=== PATIENT | female | born 1945 | race Caucasian/White ===

== ENCOUNTER 2018-06-20 23:22 | Emergency (ER) | payer OTHER ==
--- OUTSIDE RECORDS SUMMARY | 2018-06-20 23:24 | XMS REPORT | Continuity of Care Document ---
:1945 Author Organization Interface Problems Problem Status Onset Date Classification Date Comments Source Reported Medications Medication Details Route Status Patient Ordering Order Source Instructions Provider Date Allergies, Adverse Reactions, Alerts Substance Category Reaction Severity Reaction Status Date Comments Source type Reported Immunizations Immunization Date Given Site Status Last Updated Comments Source Results Order Results Value Reference Date Interpretation Comments Source Name Range Vital Signs Vital Sign Value Date Comments Source Encounters Location Location Encounter Encounter Reason Attending ADM DC Status Source Details Type Number For Provider Date Date Visit Outpatient [id number] [facility] 12/03 [facility] Outpatient [id number] ALEX 06/10 [facility] Outpatient [id number] ALEX 09/02 [facility] Procedures Procedure Code Date Perfomer Comments Source
[2018-06-20] MEDS ORDERED: DERMABOND SKIN ADHESIVE TOP ONE (23:56)
[2018-06-21] MEDS ORDERED: LIDOCAINE 1% MPF 2 ML AMPULE ONE (00:07)
[2018-06-21] MEDS ORDERED: TETANUS & DIPHTHERIA TOX,ADULT 0.5 ML VIAL ONE (00:32)
--- NOTE | 2018-06-21 04:15 | EDPHYS ---
Physician Documentation [facility] Name: Cony Bertrand Age: 73 yrs Sex: Female : 1945 Arrival Date: 06/20/2018 Time: 23:31 Bed 14 Private MD: Mele Beach C ED Physician Girish Coker HPI: 06/21 00:37 This 73 yrs old Female presents to ER via Ambulatory with complaints of Fall jr8 Injury, Laceration To Lip. 00:37 Onset: The symptoms/episode began/occurred acutely, today. Associated injuries: The jr8 patient sustained mouth. Severity of symptoms: At their worst the symptoms were mild, in the emergency department the symptoms are unchanged. The patient has not experienced similar symptoms in the past. The patient has not recently seen a physician. Fell coming out of catholic. Hit chin on ground. Denies LOC. No head or neck pain. Currently not on any blood thinners . Historical: - Allergies: 06/20 23:50 none; ak1 - Home Meds: 23:50 verapamil 240 mg Oral TbER 1 tab twice a day [Active]; ak1 - PMHx: 23:50 Hypertension; ak1 - PSHx: 23:50 Tonsillectomy; ak1 - Immunization history:: Adult Immunizations unknown, Last tetanus immunization: unknown. - Social history:: Smoking status: Patient/guardian denies using tobacco. - Ebola Screening: : No symptoms or risks identified at this time. ROS: 06/21 00:37 Eyes: Negative for injury, pain, redness, and discharge, Neck: Negative for injury, jr8 pain, and swelling, Cardiovascular: Negative for chest pain, palpitations, and edema, Respiratory: Negative for shortness of breath, cough, wheezing, and pleuritic chest pain, Abdomen/GI: Negative for abdominal pain, nausea, vomiting, diarrhea, and constipation, Back: Negative for injury and pain, MS/Extremity: Negative for injury and deformity, Skin: Negative for injury, rash, and discoloration, Neuro: Negative for headache, weakness, numbness, tingling, and seizure. ENT: Positive for laceration lip. Exam: 00:37 Eyes: Pupils equal round and reactive to light, extra-ocular motions intact. Lids and jr8 lashes normal. Conjunctiva and sclera are non-icteric and not injected. Cornea within normal limits. Periorbital areas with no swelling, redness, or edema. Neck: Trachea midline, no thyromegaly or masses palpated, and no cervical lymphadenopathy. Supple, full range of motion without nuchal rigidity, or vertebral point tenderness. No Meningismus. Cardiovascular: Regular rate and rhythm with a normal S1 and S2. No gallops, murmurs, or rubs. Normal PMI, no JVD. No pulse deficits. Respiratory: Lungs have equal breath sounds bilaterally, clear to auscultation and percussion. No rales, rhonchi or wheezes noted. No increased work of breathing, no retractions or nasal flaring. Abdomen/GI: Soft, non-tender, with normal bowel sounds. No distension or tympany. No guarding or rebound. No evidence of tenderness throughout. Back: No spinal tenderness. No costovertebral tenderness. Full range of motion. Skin: Warm, dry with normal turgor. Normal color with no rashes, no lesions, and no evidence of cellulitis. MS/ Extremity: Pulses equal, no cyanosis. Neurovascular intact. Full, normal range of motion. Neuro: Awake and alert, GCS 15, oriented to person, place, time, and situation. Cranial nerves II-XII grossly intact. Motor strength 5/5 in all extremities. Sensory grossly intact. Cerebellar exam normal. Normal gait. 00:37 ENT: Exam is negative for earache, ear discharge, TM abnormalities, nasal discharge, pharyngitis, Mouth: Lips: small laceration to center aspect lower lip. approximately 2 cm in length and about 2 mm deep. Another small jagged laceration that is superficial to outer lower lip distal to the vermilion border , Oral mucosa: pink and intact, moist, Gums: pink, Tongue: is moist, Dental exam: no acute changes. Vital Signs: 06/20 23:46 BP 184 / 106; Pulse 79; Resp 18; Temp 99.1(O); Pulse Ox 97% on R/A; Weight 74.84 kg ak1 (R); Height 5 ft. 2 in. (157.48 cm) (R); Pain 06/09; 06/21 00:36 BP 169 / 85; Pulse 81; Resp 18; Pulse Ox 99% on R/A; Pain 0/10; aa1 06/20 23:46 Body Mass Index 30.18 (74.84 kg, 157.48 cm) ak1 Laceration: 00:12 Wound Repair of 2.0cm ( 0.8in ) mucosal laceration to mouth. Linear shaped.. Minimal jr8 bleeding noted.. Distal neuro/vascular/tendon intact. Anesthesia: Local anesthetic administered with 2 mls of 1% lidocaine. Wound prep: Moderate cleansing with hibiclenz, Wound irrigation with saline, Wound explored extensively. Skin closed with 2 5-0 fast absorbing chromic using simple sutures and sterile technique. Patient tolerated well. 00:12 Wound Repair of 1.5cm ( 0.6in ) partial thickness laceration to outer lower lip. jr8 Irregularly shaped.. Distal neuro/vascular/tendon intact. Wound prep: Moderate cleansing with hibiclenz, Wound irrigation with saline, Wound explored extensively. Skin closed with thin layer Adhesive skin closure using Dermabond. Patient tolerated well. MDM: 06/20 23:38 Patient medically screened. jr8 06/21 00:12 Data reviewed: vital signs, nurses notes, and as a result, I will discharge patient. jr8 Data interpreted: Pulse oximetry: on room air is 97 %. Interpretation: normal. Counseling: I had a detailed discussion with the patient and/or guardian regarding: the historical points, exam findings, and any diagnostic results supporting the discharge/admit diagnosis, the need for outpatient follow up, a family practitioner, to return to the emergency department if symptoms worsen or persist or if there are any questions or concerns that arise at home. Administered Medications: 00:05 Drug: Lidocaine (1 %) 2 mg Route: Infiltration; aa1 00:30 Drug: Tetanus-Diphtheria Toxoid Adult 0.5 ml {Testing Director: [employer]. Exp: aa1 07/14/2020. Lot #: [id number]. } Route: IM; Site: left deltoid; 00:35 Follow up: Response: Medication administered at discharge. aa1 Disposition: 04:01 Co-signature as Attending Physician, Girish Coker MD I agree with the assessment and tw4 plan of care. Disposition: 06/21/18 00:15 Discharged to Home. Impression: Laceration of lip and oral cavity without foreign body. - Condition is Stable. - Discharge Instructions: Tissue Adhesive Wound Care, Stitches, Mcdonald, or Adhesive Wound Closure. - Medication Reconciliation Form, Thank You Letter, Antibiotic Education, Prescription Opioid Use form. - Follow up: Mele Beach MD; When: As needed; Reason: Wound Recheck, Recheck today's complaints, Continuance of care, Re-evaluation by your physician. - Problem is new. - Symptoms have improved. Signatures: Nasreen Leung RN RN aa1 Wesley Walls PA PA jr8 Maddy Hunt RN RN ak1 Girish Coker MD MD tw4 Corrections: (The following items were deleted from the chart) 00:37 00:15 06/21/2018 00:15 Discharged to Home. Impression: Laceration of lip and oral aa1 cavity without foreign body. Condition is Stable. Forms are Medication Reconciliation Form, Thank You Letter, Antibiotic Education, Prescription Opioid Use. Follow up: Mele Beach; When: As needed; Reason: Wound Recheck, Recheck today's complaints, Continuance of care, Re-evaluation by your physician. Problem is new. Symptoms have improved. jr8
--- NOTE | 2018-06-21 04:15 | ER ---
Nurse's Notes [facility] Name: Cony Bertrand Age: 73 yrs Sex: Female : 1945 Arrival Date: 06/20/2018 Time: 23:31 Bed 14 Private MD: Mele Beach C Diagnosis: Laceration of lip and oral cavity without foreign body Presentation: 06/20 23:47 Presenting complaint: Patient states: tripped and fell from standing at 1830. pt denies ak1 LOC. pt c/o bleeding to laceration on lip. Transition of care: patient was not received from another setting of care. Onset of symptoms was June 20, 2018. Risk Assessment: Do you want to hurt yourself or someone else? Patient reports no desire to harm self or others. Initial Sepsis Screen: Does the patient meet any 2 criteria? No. Patient's initial sepsis screen is negative. Does the patient have a suspected source of infection? No. Patient's initial sepsis screen is negative. Care prior to arrival: None. 23:47 Method Of Arrival: Ambulatory ak1 23:47 Acuity: VIOLETTE 4 ak1 Triage Assessment: 23:50 General: Appears in no apparent distress. Behavior is calm, cooperative. Pain: Denies ak1 pain. EENT: laceration to lip\E\. Neuro: Level of Consciousness is awake, alert, obeys commands, Oriented to person, place, time, situation, Caving Guide are equal bilaterally Moves all extremities. Gait is steady, Speech is normal. Cardiovascular: No deficits noted. Historical: - Allergies: 23:50 none; ak1 - Home Meds: 23:50 verapamil 240 mg Oral TbER 1 tab twice a day [Active]; ak1 - PMHx: 23:50 Hypertension; ak1 - PSHx: 23:50 Tonsillectomy; ak1 - Immunization history:: Adult Immunizations unknown, Last tetanus immunization: unknown. - Social history:: Smoking status: Patient/guardian denies using tobacco. - Ebola Screening: : No symptoms or risks identified at this time. Screenin:50 Abuse screen: Denies threats or abuse. Denies injuries from another. Nutritional aa1 screening: No deficits noted. Tuberculosis screening: No symptoms or risk factors identified. Fall Risk Fall in past 12 months (25 points). Assessment: 23:50 General: Appears in no apparent distress. comfortable, Behavior is calm, cooperative, aa1 appropriate for age. Pain: Complains of pain in mouth. Neuro: Level of Consciousness is awake, alert, obeys commands, Oriented to person, place, time, situation, Speech is normal. Respiratory: Airway is patent Respiratory effort is even, unlabored, Respiratory pattern is regular, symmetrical. GI: No signs and/or symptoms were reported involving the gastrointestinal system. : No signs and/or symptoms were reported regarding the genitourinary system. EENT: laceration noted to lip. Derm: Skin is intact, is healthy with good turgor, Skin is pink, warm \T\ dry. Musculoskeletal: Circulation, motion, and sensation intact. Capillary refill < 3 seconds. Injury Description: Laceration sustained to mouth is 0.5 to 2.5 cm long, not bleeding, was sustained 4-6 hours ago. 06/21 00:02 Reassessment: Patient appears in no apparent distress at this time. Patient is alert, aa1 oriented x 3, equal unlabored respirations, skin warm/dry/pink. PA at bedside for lac repair to lip. 00:36 Reassessment: Patient appears in no apparent distress at this time. Patient is alert, aa1 oriented x 3, equal unlabored respirations, skin warm/dry/pink. Discussed d/c \T\ f/u instructions with pt \T\ spouse; denies questions or concerns at this time. Vital Signs: 06/20 23:46 BP 184 / 106; Pulse 79; Resp 18; Temp 99.1(O); Pulse Ox 97% on R/A; Weight 74.84 kg ak1 (R); Height 5 ft. 2 in. (157.48 cm) (R); Pain 1/10; 06/21 00:36 BP 169 / 85; Pulse 81; Resp 18; Pulse Ox 99% on R/A; Pain 0/10; aa1 06/20 23:46 Body Mass Index 30.18 (74.84 kg, 157.48 cm) ak1 ED Course: 06/20 23:31 Patient arrived in ED. es 23:31 Mele Beach MD is Private Physician. es 23:38 [facility]. jr8 23:38 Girish Coker MD is Attending Physician. jr8 23:46 Arm band placed on Patient placed in an exam room, on a stretcher, on pulse oximetry, ak1 Patient notified of wait time. 23:49 Triage completed. ak1 23:50 Patient has correct armband on for positive identification. Bed in low position. Call aa1 light in reach. Pulse ox on. NIBP on. 23:59 Nasreen Leung, RN is Primary Nurse. aa1 06/21 00:07 Assist provider with laceration repair on mouth that was 2.5 cm. or less using sutures. aa1 Set up tray. Performed by Wesley FUENTES Patient tolerated well. Patient did not have IV access during this emergency room visit. 00:14 Mele Beach MD is Referral Physician. jr8 Administered Medications: 00:05 Drug: Lidocaine (1 %) 2 mg Route: Infiltration; aa1 00:30 Drug: Tetanus-Diphtheria Toxoid Adult 0.5 ml {Physicist [employer]: [employer]. Exp: aa1 07/14/2020. Lot #: [id number]. } Route: IM; Site: left deltoid; 00:35 Follow up: Response: Medication administered at discharge. aa1 Outcome: 00:15 Discharge ordered by . jr8 00:36 Discharged to home ambulatory, with significant other. aa1 00:36 Condition: good 00:36 Discharge instructions given to patient, significant other, Instructed on discharge instructions, follow up and referral plans. wound care, Demonstrated understanding of instructions, follow-up care, wound care. 00:37 Patient left the ED. aa1 Signatures: Nasreen Leung, RN RN aa1 Tamiko Echeverria Josh, PA PA jr8 Maddy Hunt RN RN ak1
== END 2018-06-21 00:37 | disposition home or self-care (01) ==
LOC: ER 23:22
PROC: 0CQ13ZZ Repair Lower Lip, Percutaneous Approach (ICD-10-PCS; principal; 2018-06-20)
DX: S01.511A Laceration without foreign body of lip, initial encounter (principal); S01.512A Laceration without foreign body of oral cavity, initial encounter; W01.198A Fall on same level from slipping, tripping and stumbling with subsequent striking against other object, initial encounter; Z23 Encounter for immunization; Y92.22 Religious institution as the place of occurrence of the external cause; I10 Essential (primary) hypertension; Z79.899 Other long term (current) drug therapy
CPT/HCPCS: 12013; 90714; 99283; J2001

== ENCOUNTER 2021-04-10 17:58 | Emergency (ER) | payer OTHER ==
[2021-04-10 19:04] LABS: Basophils % 0.6 % (0-1.3); Hematocrit 35.1 % (36.0-45.0); Lymphocytes % 23.8 % (15.3-44.8); MPV 8.2 fL (7.6-11.3); RBC Red Blood Cell Count 4.05 M/uL (3.86-4.86)
[2021-04-10 19:05] LABS: Protime INR 1.06
[2021-04-10 19:16] LABS: Potassium 3.4 mmol/L (3.5-5.1); Sodium Level 143 mmol/L (136-145)
[2021-04-10 19:24] LABS: ALT/SGPT 20 U/L (12-78); AST/SGOT 17 U/L (15-37); Albumin 3.5 g/dL (3.4-5.0); Alkaline Phosphatase 54 U/L (45-117); BUN Blood Urea Nitrogen 22 mg/dL (7-18); Bicarbonate 28 mmol/L (21-32); Bilirubin Direct 0.2 mg/dL (0-0.2); Bilirubin Total 0.6 mg/dL (0.2-1.0); Glucose Level 95 mg/dL (74-106); Magnesium 2.1 mg/dL (1.8-2.4); NT PRO-BNP 204 pg/mL (<450); Protein, Total 7.5 g/dL (6.4-8.2); Troponin (Emerg Dept Use Only) < 0.02 ng/mL (0.0-0.045)
--- NOTE | 2021-04-10 20:07 | RAD REPORT ---
EXAM DESCRIPTION: CT - Head Brain Wo Cont - 04/10/2021 7:39 pm CLINICAL HISTORY: near syncope COMPARISON: No comparisons TECHNIQUE: Axial 5 mm thick images of the head were obtained without IV contrast. All CT scans are performed using dose optimization technique as appropriate and may include automated exposure control or mA/KV adjustment according to patient size. FINDINGS: No intracranial hemorrhage, mass, edema or shift of mid-line structures. No acute infarcti on changes seen. No cortical edema or sulcal effacement. Atrophy changes are mild. Ventricles are in proportion to volume loss. Advanced chronic ischemic changes are present in the cerebral white matter with less prominent chronic ischemic change in the basal ganglia thalamus and brainstem tissues. Mastoid air cells and visualized portions of the paranasal sinuses are clear. No acute bony findings. Arterial tree calcifications are present. IMPRESSION: Advanced chronic ischemic change throughout the cerebral white matter. Atrophy changes a re mild. No acute intracranial finding.
--- NOTE | 2021-04-10 20:07 | RAD REPORT ---
EXAM DESCRIPTION: RAD - Chest Single View - 04/10/2021 7:33 pm CLINICAL HISTORY: near syncope COMPARISON: March 2017 TECHNIQUE: AP portable chest image was obtained 04/10/2021 7:33 pm . FINDINGS: Lung volumes are low. No acute lung parenchymal process seen. Calcified nodule in the righ t base has not changed over this long interval. Heart and vasculature are normal. No measurable pleur al effusion and no pneumothorax. No acute bony abnormality seen. No acute aortic findings suspected. IMPRESSION: No acute cardiopulmonary process. No significant change from comparison study.
[2021-04-10 20:49] LABS: Urine Blood Negative (Negative); Urine Glucose Negative (Negative); Urine Protein Negative (Negative); Urine Specific Gravity 1.025 (1.005-1.030)
--- NOTE | 2021-04-10 21:17 | ER ---
Nurse's Notes [facility] Name: Cony Bertrand Age: 76 yrs Sex: Female : 1945 Arrival Date: 04/10/2021 Time: 18:07 Bed 7 Private MD: Diagnosis: Weakness;Syncope Near Presentation: 04/10 18:07 Chief complaint: EMS states: Toned out for near syncopal episode, pt stood after having jl7 dinner and almost had a syncopal episode, never lost consciousness, pt baseline at A\T\Ox1 to self. Coronavirus screen: At this time, the client does not indicate any symptoms associated with coronavirus-19. Ebola Screen: No symptoms or risks identified at this time. Initial Sepsis Screen: Does the patient meet any 2 criteria? No. Patient's initial sepsis screen is negative. Does the patient have a suspected source of infection? No. Patient's initial sepsis screen is negative. Risk Assessment: Do you want to hurt yourself or someone else? Patient reports no desire to harm self or others. Onset of symptoms was April 10, 2021. Care prior to arrival: Glucose check: 177. 18:07 Method Of Arrival: EMS: [facility] jl7 18:07 Acuity: VIOLETTE 3 jl7 Triage Assessment: 18:07 General: Appears in no apparent distress. uncomfortable, Behavior is calm, cooperative. jl7 Pain: Denies pain. Neuro: Level of Consciousness is awake, alert, obeys commands, Oriented to person. Cardiovascular: Patient's skin is warm and dry. Respiratory: Airway is patent Respiratory effort is even, unlabored, Respiratory pattern is regular, symmetrical. Derm: Skin is pink, warm \T\ dry. Historical: - Allergies: 18:29 none; jl7 18:29 unknown medication; jl7 - Home Meds: 18:29 Klonopin 1 mg Oral TbDi [Active]; jl7 - PMHx: 18:29 Hypertension; Hypothyroidism; Alzheimer's disease; Dementia; High cholesterol; Anxiety; jl7 - Immunization history:: Client reports receiving the 2nd dose of the Covid vaccine. - Social history:: Smoking status: Patient denies any tobacco usage or history of. Screenin:07 Abuse screen: Denies threats or abuse. Denies injuries from another. Nutritional jl7 screening: No deficits noted. Tuberculosis screening: No symptoms or risk factors identified. Fall Risk IV access (20 points). Total Lew Fall Scale indicates No Risk (0-24 pts). Assessment: 18:07 General: See triage. jl7 20:30 Reassessment: Patient and/or family updated on plan of care and expected duration. Pain kc4 level reassessed. Patient is alert, oriented x 3, equal unlabored respirations, skin warm/dry/pink. Patient denies pain at this time. Pt seems to be sundowning. Pt is getting hostile with executive chef assistant and ER staff. . 20:30 General: Appears obese, Behavior is anxious, restless, uncooperative, Denies fever, kc4 feeling ill, fatigue, chills. Pain: Denies pain. Neuro: Level of Consciousness is awake, alert, confused, Oriented to time, situation, Drum Worker are equal bilaterally. Cardiovascular: No deficits noted. Respiratory: No deficits noted. GI: No deficits noted. No signs and/or symptoms were reported involving the gastrointestinal system. : No deficits noted. No signs and/or symptoms were reported regarding the genitourinary system. EENT: No deficits noted. No signs and/or symptoms were reported regarding the EENT system. Derm: No deficits noted. No signs and/or symptoms reported regarding the dermatologic system. Musculoskeletal: No deficits noted. No signs and/or symptoms reported regarding the musculoskeletal system. Vital Signs: 18:07 BP 129 / 62; Pulse 65; Resp 15; Temp 97; Pulse Ox 96% ; jl7 21:17 BP 124 / 68; Pulse 68; Resp 16; Temp 98.0; Pulse Ox 99% on R/A; Pain 0/10; kc4 21:34 BP 128 / 62; Pulse 72; Resp 18; Temp 98.0(O); Pulse Ox 99% on R/A; kc4 NIH Stroke Scale Scores: 18:40 NIHSS Score: 0 cp ED Course: 18:07 Patient arrived in ED. jl7 18:07 Arm band placed on right wrist. jl7 18:07 Patient has correct armband on for positive identification. Placed in gown. Bed in low jl7 position. Call light in reach. Side rails up X2. secured entrance monitor on. Pulse ox on. NIBP on. 18:15 Torsten Adames PA is PHCP. cp 18:15 Martin West MD is Attending Physician. cp 18:24 Marla Villafuerte, SINA is Primary Nurse. jl7 18:29 Triage completed. jl7 18:45 Initial lab(s) drawn, by ED staff, sent to lab. EKG done, by ED staff, reviewed by rakel West MD. Inserted saline lock: 20 gauge in right antecubital area, using aseptic technique. Blood collected. 19:13 Basic Metabolic Panel Sent. bs2 19:13 CBC with Diff Sent. bs2 19:13 XRAY Chest (1 view) Sent. bs2 19:13 LFT's Sent. bs2 19:13 Magnesium Sent. bs2 19:13 NT PRO-BNP Sent. bs2 19:13 Troponin (emerg Dept Use Only) Sent. bs2 19:33 XRAY Chest (1 view) In Process Unspecified. EDMS 19:39 CT Head Brain wo Cont In Process Unspecified. EDMS 19:53 Torsten Hutchinson MD is Attending Physician. cp 20:44 Urine Microscopic Only Sent. bs2 21:39 No provider procedures requiring assistance completed. IV discontinued, intact, kc4 bleeding controlled, No redness/swelling at site. Pressure dressing applied. Administered Medications: No medications were administered Outcome: 21:16 Discharge ordered by . cp 21:39 Discharged to home via wheelchair. kc4 21:39 Condition: stable 21:39 Discharge instructions given to patient, family, Instructed on discharge instructions, follow up and referral plans. Demonstrated understanding of instructions, follow-up care, medications, wound care. 21:42 Patient left the ED. kc4 NIH Stroke Scale - NIH Stroke Score Date: 04/10/2021 Time: 18:40 Total Score = 0 1a. Level of Consciousness (LOC) - 0(Alert) 1b. Level of Consciousness (LOC) (Month \T\ Age) - 0(Both) 1c. LOC Commands (Open \T\ Closes Eyes/Anode Adjuster) - 0(Both) 2. Best Gaze (Lateral Gaze Paresis) - 0(Normal) 3. Visual Field Loss - 0(No visual loss) 4. Facial Palsy - 0(Normal) 5a. Left Arm: Motor (10-second hold) - 0(No drift) 5b. Right Arm: Motor (10-second hold) - 0(No drift) 6a. Left Leg: Motor (5-second hold - always test supine) - 0(No drift) 6b. Right Leg: Motor (5-second hold - always test supine) - 0(No drift) 7. Limb Ataxia (finger/nose \T\ heel/bosch - test with eyes open) - 0(Absent) 8. Sensory Loss (pinprick arms/legs/face) - 0(Normal) 9. Best Language: Aphasia (description/naming/reading) - 0(No aphasia) 10. Dysarthria (speech clarity - read or repeat words) - 0(Normal) 11. Extinction and Inattention (visual/tactile/auditory/spatial/personal) - 0(No abnormality) Initials: cp Addendum: 04/14/2021 12:10 Addendum: Culture Results: Bacteria is resistant to, has intermediate aa5 sensitivity, or is not tested against prescribed antibiotics. Report given to BRENDA for further evaluation and then to music video director for follow up with patient. Phone call Attempt #1 contacted [facility], left message and staff states nurse will call back. 12:20 Addendum: Culture Results: Phone call Attempt #2 Industrial Sales Representative (Jennifer) at [address] called back and culture results were faxed to her. Signatures: Dispatcher [employer] Bibi Holden, RN RN aa5 Torsten Adames PA PA cp Leal, Jahala RN RN jl7 Kirstie Mata RN RN bs2 Eulalia Amaral 4
--- NOTE | 2021-04-10 21:17 | EDPHYS ---
Physician Documentation [facility] Name: Cony Bertrand Age: 76 yrs Sex: Female : 1945 Arrival Date: 04/10/2021 Time: 18:07 Bed 7 Private MD: ED Physician Torsten Hutchinson HPI: 04/10 18:33 This 76 yrs old Female presents to ER via EMS with complaints of Near Syncope.cp 18:33 The patient has experienced near-syncope, legs became weak causing patient to need cp assistance. Onset: The symptoms/episode began/occurred this evening while at dinner. Duration: This was a single episode. Associated injury: The patient did not suffer any apparent associated injury. Associated signs and symptoms: Pertinent negatives: abdominal pain, chest pain, combativeness, confusion, diaphoresis, headache, seizure. Current symptoms: Currently, the patient is not experiencing any symptoms, the patient feels back to baseline. Historical: - Allergies: 18:29 none; jl7 18:29 unknown medication; jl7 - Home Meds: 18:29 Klonopin 1 mg Oral TbDi [Active]; jl7 - PMHx: 18:29 Hypertension; Hypothyroidism; Alzheimer's disease; Dementia; High cholesterol; Anxiety; jl7 - Immunization history:: Client reports receiving the 2nd dose of the Covid vaccine. - Social history:: Smoking status: Patient denies any tobacco usage or history of. ROS: 18:36 Constitutional: Negative for body aches, chills, fever. cp 18:36 Cardiovascular: Negative for chest pain. 18:36 Respiratory: Negative for cough, shortness of breath, wheezing. 18:36 Abdomen/GI: Negative for abdominal pain, vomiting, diarrhea, constipation. 18:36 Neuro: Positive for weakness, of the right leg and left leg, Negative for altered mental status, headache, loss of consciousness, syncope. 18:36 All other systems are negative. Exam: 18:20 ECG was reviewed by the Attending Physician. cp 18:40 Constitutional: The patient appears in no acute distress, alert, awake, comfortable, cp non-diaphoretic, non-toxic, well developed, well nourished. 18:40 Head/Face: Normocephalic, atraumatic. cp 18:40 Eyes: Periorbital structures: appear normal, Pupils: equal, round, and reactive to light and accomodation, Extraocular movements: intact throughout, Conjunctiva: normal, no exudate, no injection, Sclera: no appreciated abnormality, Lids and lashes: appear normal, bilaterally. 18:40 ENT: External ear(s): are unremarkable, Nose: is normal, Mouth: Lips: moist, Oral mucosa: pink and intact, moist, Posterior pharynx: Airway: no evidence of obstruction, patent. 18:40 Neck: ROM/movement: is normal, is supple, without pain, no range of motions limitations, no nuchal rigidity. 18:40 Chest/axilla: Inspection: normal. cp 18:40 Cardiovascular: Rate: normal, Rhythm: regular, Edema: is not appreciated, JVD: is not cp appreciated. 18:40 Respiratory: the patient does not display signs of respiratory distress, Respirations: normal, no use of accessory muscles, no retractions, labored breathing, is not present, Breath sounds: are clear throughout, no decreased breath sounds, no stridor, no wheezing. 18:40 Abdomen/GI: Inspection: abdomen appears normal, Bowel sounds: active, all quadrants, Palpation: abdomen is soft and non-tender, in all quadrants. 18:40 Back: pain, is absent, ROM is normal. 18:40 Musculoskeletal/extremity: Exam is negative for decreased range of motion, deformity, injury. 18:40 Skin: no rash present. 18:40 Neuro: Orientation: no acute changes, per family, to person, Mentation: able to follow commands, Motor: moves all fours, strength is normal, Sensation: no obvious gross deficits. Vital Signs: 18:07 BP 129 / 62; Pulse 65; Resp 15; Temp 97; Pulse Ox 96% ; jl7 21:17 BP 124 / 68; Pulse 68; Resp 16; Temp 98.0; Pulse Ox 99% on R/A; Pain 0/10; kc4 21:34 BP 128 / 62; Pulse 72; Resp 18; Temp 98.0(O); Pulse Ox 99% on R/A; kc4 NIH Stroke Scale Scores: 18:40 NIHSS Score: 0 cp MDM: 18:30 Patient medically screened. cp 19:00 Differential Diagnosis: cardiac arrhythmia, GI bleed, seizure, transient ischemic cp attack, vasovagal episode. 21:15 Data reviewed: vital signs, nurses notes, lab test result(s), EKG, radiologic studies, cp CT scan, plain films. 21:15 Test interpretation: by ED physician or midlevel provider: ECG, plain radiologic cp studies. Counseling: I had a detailed discussion with the patient and/or guardian regarding: the historical points, exam findings, and any diagnostic results supporting the discharge/admit diagnosis, lab results, radiology results, to return to the emergency department if symptoms worsen or persist or if there are any questions or concerns that arise at home. 04/10 18:27 Order name: Basic Metabolic Panel 04/10 18:27 Order name: CBC with Diff 04/10 18:27 Order name: LFT's; Complete Time: 20:45 04/10 20:45 Interpretation: Normal except: GLOB 4.0; A/G 0.9. 04/10 18:27 Order name: Magnesium; Complete Time: 20:45 04/10 18:27 Order name: NT PRO-BNP; Complete Time: 20:45 04/10 18:27 Order name: PT-INR; Complete Time: 20:45 04/10 18:27 Order name: Troponin (emerg Dept Use Only); Complete Time: 20:45 04/10 18:27 Order name: XRAY Chest (1 view); Complete Time: 20:45 04/10 18:27 Order name: EKG; Complete Time: 18:28 04/10 18:27 Order name: Urine Microscopic Only 04/10 18:28 Order name: Basic Metabolic Panel; Complete Time: 20:45 EDMS 04/10 20:45 Interpretation: Normal except: K 3.4; CL 110; BUN 22; GFR 42. 04/10 18:28 Order name: CBC with Automated Diff; Complete Time: 20:45 EDMS 04/10 20:46 Interpretation: Normal except: HGB 11.5; HCT 35.1. 04/10 18:29 Order name: CT Head Brain wo Cont; Complete Time: 20:45 04/10 20:46 Interpretation: Report reviewed. 04/10 20:49 Order name: Urine Dipstick-Ancillary; Complete Time: 21:04 EDOR 04/10 18:27 Order name: Cardiac monitoring; Complete Time: 18:48 04/10 18:27 Order name: EKG - Nurse/Tech; Complete Time: 18:48 cp 04/10 18:27 Order name: IV Saline Lock; Complete Time: 18:48 cp 04/10 18:27 Order name: Labs collected and sent; Complete Time: 18:48 cp 04/10 18:27 Order name: O2 Per Protocol; Complete Time: 18:48 cp 04/10 18:27 Order name: O2 Sat Monitoring; Complete Time: 18:48 cp 04/10 18:27 Order name: Urine Dipstick-Ancillary (obtain specimen); Complete Time: 20:44 cp EC:20 Rate is 65 beats/min. Rhythm is regular. TX interval is normal. QRS interval is normal. cp QT interval is normal. T waves are Inverted in lead aVR. Interpreted by me. Reviewed by me. Administered Medications: No medications were administered Disposition: 04/11 08:48 Co-signature as Attending Physician, Torsten Hutchinson MD I agree with the assessment and mary plan of care. Chart complete. Disposition Summary: 04/10/21 21:16 Discharge Ordered Location: Home cp Problem: new cp Symptoms: have improved cp Condition: Stable cp Diagnosis - Weakness cp - Syncope Near cp Followup: cp - With: Private Physician - When: 1 - 2 days - Reason: Recheck today's complaints Discharge Instructions: - Discharge Summary Sheet cp - Near-Syncope cp - Weakness cp Forms: - Medication Reconciliation Form cp - Thank You Letter cp - Antibiotic Education cp - Prescription Opioid Use cp NIH Stroke Scale - NIH Stroke Score Date: 04/10/2021 Time: 18:40 Total Score = 0 1a. Level of Consciousness (LOC) - 0(Alert) 1b. Level of Consciousness (LOC) (Month \T\ Age) - 0(Both) 1c. LOC Commands (Open \T\ Closes Eyes/Dog Behaviorist) - 0(Both) 2. Best Gaze (Lateral Gaze Paresis) - 0(Normal) 3. Visual Field Loss - 0(No visual loss) 4. Facial Palsy - 0(Normal) 5a. Left Arm: Motor (10-second hold) - 0(No drift) 5b. Right Arm: Motor (10-second hold) - 0(No drift) 6a. Left Leg: Motor (5-second hold - always test supine) - 0(No drift) 6b. Right Leg: Motor (5-second hold - always test supine) - 0(No drift) 7. Limb Ataxia (finger/nose \T\ heel/bosch - test with eyes open) - 0(Absent) 8. Sensory Loss (pinprick arms/legs/face) - 0(Normal) 9. Best Language: Aphasia (description/naming/reading) - 0(No aphasia) 10. Dysarthria (speech clarity - read or repeat words) - 0(Normal) 11. Extinction and Inattention (visual/tactile/auditory/spatial/personal) - 0(No abnormality) Initials: cp Signatures: Dispatcher [employer] EDTorsten Santos MD MD cha Page, Corey, PA PA Marla Olivarez RN RN jl7 Corrections: (The following items were deleted from the chart) 04/10 18:36 18:33 Current symptoms: Currently, the patient is not experiencing any cp symptoms, cp
[2021-04-10 21:46] LABS: Urine Bacteria 20-50 /HPF (<20); Urine Mucus 2+ /HPF (NONE SEEN); Urine RBC <5 /HPF (NONE SEEN)
[2021-04-10 21:51] VITALS: BP 124/68; TEMP 98; O2SAT 99
--- NOTE | 2021-04-11 20:37 | EKG ---
Test Date: 2021-04-10 Test Time: 18:14:25 Harvest Supervisor: DAMIEN MEASUREMENT RESULTS: Intervals: Rate: 65 OK: 176 QRSD: 84 QT: 440 QTc: 457 [place]: P: 69 OK: 176 QRS: 14 T: 57 INTERPRETIVE STATEMENTS: Normal sinus rhythm Nonspecific T wave abnormality Abnormal ECG Compared to ECG 04/02/2017 09:48:28 T-wave abnormality now present Sinus bradycardia no longer present Electronically Signed On 04-11-21 20:35:08 CLINICAL SCIENCES PROFESSOR by Tang Escalante
--- OUTSIDE RECORDS SUMMARY | 2021-04-12 22:03 | XMS REPORT | Continuity of Care Document ---
:1945 Author Organization [facility] t Address [address] [place] [address] Care Team Providers Name Role Phone Ameya HANSEN, Gene Attending Clinician Doctor Unassigned, Name Attending Clinician Unavailable AMEYA, FRANCIS Attending Clinician Unavailable AMEYA, GENE Attending Clinician Unavailable Payers Payer Name Policy Type Policy Number Effective Date Expiration Date S ource Problems This patient has no known problems. Allergies, Adverse Reactions, Alerts Allergy Allergy Status Severity Reaction(s) Onset Inactive Treating Comm ents Source Name Type Date Date Clinician NO KNOWN Drug Active Univers ALLERGIE Class ity of [facility] Social History Social Habit Start Date Stop Date Quantity Comments Source Exposure to Not sure [facility] SARS-CoV-2 (event) Medica l Branch Tobacco use and 2020-04-19 2020-04-19 Never used [facility] exposure 00:00:00 00:00:00 [facility] Sex Ass[birth year] At [birth year] [facility] 00:00:00 00:00:00 [facility] Smoking Status Start Date Stop Date Source Unknown if ever smoked [facility] smoker [facility] Medications Ordered Filled Start Stop Current Ordering Indication Dosage Frequency Signature Comments Components Source Medication Medication Date Date Medication? Clinician (SIG) Name Name GALANTAMINE Yes [id number] TAKE ONE Univers 8 mg tablet 7-20 TABLET BY ity of 00:00: MOUTH 2 [place] 00 TIMES A Medical DAY AT 8AM Branch AND 8PM galantamine Yes [id number] 8mg Take 1 Univers 8 mg tablet 3-03 tablet by ity of 00:00: mouth 2 [place] 00 (two) Medical times Branch daily. galantamine 0 Yes [id number] 8mg Take 1 Univers 8 mg tablet 3-03 tablet by ity of 00:00: mouth (two) Medical times Branch daily. galantamine 0 2021- No [id number] 8mg Take 1 Univers 8 mg tablet 3-03 07-20 tablet by it y of 00:00: 00:00 mouth : (two) Medical times Branch daily. galantamine 2019-1 Yes [id number] 8mg Take 1 Univers 8 mg tablet 0-23 tablet by ity of 00:00: mouth (two) Medical times Branch daily. galantamine 2020-1 Yes [id number] 8mg Take 1 Univers 8 mg tablet 0-23 tablet by ity of 00:00: mouth [place] (two) Medical times Branch daily. galantamine 2019-1 Yes [id number] 8mg Take 1 Univers 8 mg tablet 0-23 tablet by ity of 00:00: mouth [place] ([facility]) Medical times Branch daily. galantamine 2019-1 Yes [id number] 8mg Take 1 Univers 8 mg tablet 0-23 tablet by ity of 00:00: mouth [place] ([facility]) Medical times Branch daily. galantamine 2020-1 Yes [id number] 8mg Take 1 Univers 8 mg tablet 0-23 tablet by ity of 00:00: mouth [place] ([facility]) Medical times Branch daily. galantamine 2019-1 Yes [id number] 8mg Take 1 Univers 8 mg tablet 0-23 tablet by ity of 00:00: mouth [place] (two) Medical times Branch daily. galantamine 2019-1 Yes [id number] 8mg Take 1 Univers 8 mg tablet 0-23 tablet by ity of 00:00: mouth [place] (two) Medical times Branch daily. galantamine 2020-1 Yes [id number] 8mg Take 1 Univers 8 mg tablet 0-23 tablet by ity of 00:00: mouth [place] (two) Medical times Branch daily. galantamine 2020-1 Yes [id number] 8mg Take 1 Univers 8 mg tablet 0-23 tablet by ity of 00:00: mouth [place] (two) Medical times Branch daily. galantamine 2019-05 Yes [id number] 8mg Take 1 Univers 8 mg tablet 0-23 tablet by ity of 00:00: mouth 2 [place] 00 (two) Medical times Branch daily. galantamine 2019-05- No [id number] 8mg Take 1 Univers 8 mg tablet 0-23 03-03 tablet by it y of 00:00: 00:00 mouth 2 [place] 00 :00 (two) Medical times [place] daily. verapamiL 2019-05 Yes Univers 240 mg ER 0-16 ity of tablet 00:00: [place] [facility] verapamiL 2019-05 Yes Univers 240 mg ER 0-16 ity of tablet 00:00: [place] [facility] verapamiL 2019-05 Yes Univers 240 mg ER 0-16 ity of tablet 00:00: [place] [facility] verapamiL 2019-05 Yes Univers 240 mg ER 0-16 ity of tablet 00:00: [place] [facility] verapamiL 2019-05 Yes Univers 240 mg ER 0-16 ity of tablet 00:00: [place] [facility] verapamiL 2019-05 Yes Univers 240 mg ER 0-16 ity of tablet 00:00: [place] [facility] verapamiL 2019-05 Yes Univers 240 mg ER 0-16 ity of tablet 00:00: [place] [facility] verapamiL 2019-05 Yes Univers 240 mg ER 0-16 ity of tablet 00:00: [place] [facility] verapamiL 2019-05 Yes Univers 240 mg ER 0-16 ity of tablet 00:00: [place] [facility] verapamiL 2019-05 Yes Univers 240 mg ER 0-16 ity of tablet 00:00: [place] [facility] verapamiL 2019- Yes Univers 240 mg ER 0-16 ity of tablet 00:00: [place] [facility] verapamiL 2019- Yes Univers 240 mg ER 0-16 ity of tablet 00:00: [place] [facility] verapamiL 2019-05 Yes Univers 240 mg ER 0-16 ity of tablet 00:00: [place] [facility] verapamiL 2019-05 Yes Univers 240 mg ER 0-16 ity of tablet 00:00: [place] [facility] memantine 2019-05 Yes 10mg Take 10 mg Un ke 10 mg 0-14 by mouth 2 ity of tablet 00:00: (two) [place] [address] times Medical daily. Branch valsartan 2019-05 Yes 40mg Take 40 mg Un ke 40 mg 0-14 by mouth ity of tablet 00:00: daily. Medical Branch memantine 2020-1 Yes 10mg Take 10 mg Un ke 10 mg 0-14 by mouth 2 ity of tablet 00:00: (two) [place] 00 times Medical daily. Branch valsartan 2020-1 Yes 40mg Take 40 mg Un ke 40 mg 0-14 by mouth ity of tablet 00:00: daily. Medical Branch memantine 2020-1 Yes 10mg Take 10 mg Un ke 10 mg 0-14 by mouth 2 ity of tablet 00:00: (two) [place] 00 times Medical daily. Branch valsartan 2020- Yes 40mg Take 40 mg Un ke 40 mg 0-14 by mouth ity of tablet 00:00: daily. Medical Branch memantine 2020-1 Yes 10mg Take 10 mg Un ke 10 mg 0-14 by mouth 2 ity of tablet 00:00: (two) 00 times Medical daily. Branch valsartan 2020- Yes 40mg Take 40 mg Un ke 40 mg 0-14 by mouth ity of tablet 00:00: daily. Medical Branch memantine 2020-1 Yes 10mg Take 10 mg Un ke 10 mg 0-14 by mouth 2 ity of tablet 00:00: (two) 00 times Medical daily. Branch valsartan 2020-1 Yes 40mg Take 40 mg Un ke 40 mg 0-14 by mouth ity of tablet 00:00: daily. Medical Branch memantine 2020-1 Yes 10mg Take 10 mg Un ke 10 mg 0-14 by mouth 2 ity of tablet 00:00: (two) [place] 00 times Medical daily. Branch valsartan 2020-1 Yes 40mg Take 40 mg Un ke 40 mg 0-14 by mouth ity of tablet 00:00: daily. Medical Branch memantine 2020-1 Yes 10mg Take 10 mg Un ke 10 mg 0-14 by mouth 2 ity of tablet 00:00: (two) [place] 00 times Medical daily. Branch valsartan 2020-1 Yes 40mg Take 40 mg Un ke 40 mg 0-14 by mouth ity of tablet 00:00: daily. Medical Branch memantine 2020-1 Yes 10mg Take 10 mg Un ke 10 mg 0-14 by mouth 2 ity of tablet 00:00: (two) [place] 00 times Medical daily. Branch valsartan 2020-1 Yes 40mg Take 40 mg Un ke 40 mg 0-14 by mouth ity of tablet 00:00: daily. Medical Branch memantine 2020-1 Yes 10mg Take 10 mg Un ke 10 mg 0-14 by mouth 2 ity of tablet 00:00: (two) [place] 00 times Medical daily. Branch valsartan 2020-1 Yes 40mg Take 40 mg Un ke 40 mg 0-14 by mouth ity of tablet 00:00: daily. Medical Branch memantine 2020-1 Yes 10mg Take 10 mg Un ke 10 mg 0-14 by mouth 2 ity of tablet 00:00: (two) [place] 00 times Medical daily. Branch valsartan 2020-1 Yes 40mg Take 40 mg Un ke 40 mg 0-14 by mouth ity of tablet 00:00: daily. Medical Branch memantine 2020-1 Yes 10mg Take 10 mg Un ke 10 mg 0-14 by mouth 2 ity of tablet 00:00: (two) [place] 00 times Medical daily. Branch valsartan 2020-1 Yes 40mg Take 40 mg Un ke 40 mg 0-14 by mouth ity of tablet 00:00: daily. Medical Branch memantine 2020-1 Yes 10mg Take 10 mg Un ke 10 mg 0-14 by mouth 2 ity of tablet 00:00: (two) [place] 00 times Medical daily. Branch valsartan 2020-1 Yes 40mg Take 40 mg Un ke 40 mg 0-14 by mouth ity of tablet 00:00: daily. Medical Branch memantine 2020-1 Yes 10mg Take 10 mg Un ke 10 mg 0-14 by mouth 2 ity of tablet 00:00: (two) [place] 00 times Medical daily. Branch valsartan 2020-1 Yes 40mg Take 40 mg Un ke 40 mg 0-14 by mouth ity of tablet 00:00: daily. Medical Branch memantine 2020-1 Yes 10mg Take 10 mg Un ke 10 mg 0-14 by mouth 2 ity of tablet 00:00: (two) [place] 00 times Medical daily. Branch valsartan 2020-1 Yes 40mg Take 40 mg Un ke 40 mg 0-14 by mouth ity of tablet 00:00: daily. [place] [facility] levothyroxi 2020-0 Yes 125ug Take 125 U nivers ne 125 mcg 9-14 mcg by ity of tablet 00:00: mouth. [place] [facility] levothyroxi 2020-0 Yes 125ug Take 125 U nivers ne 125 mcg 9-14 mcg by ity of tablet 00:00: mouth. [place] [facility] levothyroxi 2020-0 Yes 125ug Take 125 U nivers ne 125 mcg 9-14 mcg by ity of tablet 00:00: mouth. [place] [facility] levothyroxi 2020-0 Yes 125ug Take 125 U nivers ne 125 mcg 9-14 mcg by ity of tablet 00:00: mouth. [place] [facility] levothyroxi 2020-0 Yes 125ug Take 125 U nivers ne 125 mcg 9-14 mcg by ity of tablet 00:00: mouth. [place] [facility] levothyroxi 2020-0 Yes 125ug Take 125 U nivers ne 125 mcg 9-14 mcg by ity of tablet 00:00: mouth. [place] [facility] levothyroxi 2020-0 Yes 125ug Take 125 U nivers ne 125 mcg 9-14 mcg by ity of tablet 00:00: mouth. [place] [facility] levothyroxi 2020-0 Yes 125ug Take 125 U nivers ne 125 mcg 9-14 mcg by ity of tablet 00:00: mouth. [place] [facility] levothyroxi 2020-0 Yes 125ug Take 125 U nivers ne 125 mcg 9-14 mcg by ity of tablet 00:00: mouth. [place] [facility] levothyroxi 2020-0 Yes 125ug Take 125 U nivers ne 125 mcg 9-14 mcg by ity of tablet 00:00: mouth. [place] [facility] levothyroxi 2020-0 Yes 125ug Take 125 U nivers ne 125 mcg 9-14 mcg by ity of tablet 00:00: mouth. [place] [address] Medical Branch levothyroxi 2020-0 Yes 125ug Take 125 U nivers ne 125 mcg 9-14 mcg by ity of tablet 00:00: mouth. [place] [address] Medical Branch levothyroxi 2020-0 Yes 125ug Take 125 U nivers ne 125 mcg 9-14 mcg by ity of tablet 00:00: mouth. [place] [address] Medical Branch levothyroxi 2020-0 Yes 125ug Take 125 U nivers ne 125 mcg 9-14 mcg by ity of tablet 00:00: mouth. [place] 00 Medical Branch atorvastati 2020-0 Yes 40mg Take 40 mg Univers n 40 mg 8-30 by mouth ity of tablet 00:00: at [place] [address] bedtime. Medical Branch atorvastati 2020-0 Yes 40mg Take 40 mg Univers n 40 mg 8-30 by mouth ity of tablet 00:00: at [place] [address] bedtime. Medical Branch atorvastati 2020-0 Yes 40mg Take 40 mg Univers n 40 mg 8-30 by mouth ity of tablet 00:00: at [place] [address] bedtime. Medical Branch galantamine 2020-0 Yes 4mg Take 4 mg U nivers 4 mg tablet 8-30 by mouth 2 it y of 00:00: (two) [place] [address] times Medical daily. Branch atorvastati 2019-0 Yes 40mg Take 40 mg Univers n 40 mg 8-30 by mouth ity of tablet 00:00: at [place] [address] bedtime. Medical Branch atorvastati 2019-0 Yes 40mg Take 40 mg Univers n 40 mg 8-30 by mouth ity of tablet 00:00: at [place] [address] bedtime. Medical Branch rivastigmin 2019-0 Yes APPLY 1 Uni vers e 4.6 mg/24 8-30 PATCH ity of hr patch 00:00: DAILY APPLYTO Medical AREA THAT Branch IS CLEAN.DRY. HAIRLESS & FREE REDNESS NEGRO/CUT atorvastati 2020-0 Yes 40mg Take 40 mg Univers n 40 mg 8-30 by mouth ity of tablet 00:00: at [place] [address] bedtime. Medical Branch atorvastati 2020-0 Yes 40mg Take 40 mg Univers n 40 mg 8-30 by mouth ity of tablet 00:00: at [place] [address] bedtime. Medical Branch atorvastati 2020-0 Yes 40mg Take 40 mg Univers n 40 mg 8-30 by mouth ity of tablet 00:00: at [place] [address] bedtime. Medical Branch atorvastati 2020-0 Yes 40mg Take 40 mg Univers n 40 mg 8-30 by mouth ity of tablet 00:00: at [place] [address] bedtime. Medical Branch atorvastati 2020-0 Yes 40mg Take 40 mg Univers n 40 mg 8-30 by mouth ity of tablet 00:00: at [place] [address] bedtime. Medical Branch atorvastati 2020-0 Yes 40mg Take 40 mg Univers n 40 mg 8-30 by mouth ity of tablet 00:00: at [place] [address] bedtime. Medical Branch atorvastati 2020-0 Yes 40mg Take 40 mg Univers n 40 mg 8-30 by mouth ity of tablet 00:00: at [place] [address] bedtime. Medical Branch atorvastati 2020-0 Yes 40mg Take 40 mg Univers n 40 mg 8-30 by mouth ity of tablet 00:00: at [place] [address] bedtime. Medical Branch atorvastati 2020-0 Yes 40mg Take 40 mg Univers n 40 mg 8-30 by mouth ity of tablet 00:00: at [place] [address] bedtime. Medical Branch rivastigmin 2020-0 2020- No APPLY 1 Un ke e 4.6 mg/24 8-30 12-15 PATCH ity of hr patch 00:00: 00:00 DAILY [place] 00 :00 APPLYTO Medical AREA THAT Branch IS CLEAN.DRY. HAIRLESS & FREE REDNESS NEGRO/CUT galantamine 2020-0 2020- No 4mg Take 4 mg Univers 4 mg tablet 8-30 12-15 by mouth 2 i ty of 00:00: 00:00 (two) [place] 00 :00 times Medical daily. Branch galantamine 2020-0 2020- No 4mg Take 4 mg Univers 4 mg tablet 8-30 10-23 by mouth 2 i ty of 00:00: 00:00 (two) [place] 00 :00 times Medical daily. Branch rivastigmin 2020-0 2020- No APPLY 1 Un ke e 4.6 mg/24 8-30 10-23 PATCH ity of hr patch 00:00: 00:00 DAILY [place] 00 :00 APPLYTO Medical AREA THAT Branch IS CLEAN.DRY. HAIRLESS & FREE REDNESS NEGRO/CUT galantamine 2020-0 2020- No 4mg Take 4 mg Univers 4 mg tablet 8-30 10-23 by mouth 2 i ty of 00:00: 00:00 (two) [place] 00 :00 times Medical daily. Branch rivastigmin 2020-0 2020- No APPLY 1 Un ke e 4.6 mg/24 8-30 10-23 PATCH ity of hr patch 00:00: 00:00 DAILY [place] 00 :00 APPLYTO Medical AREA THAT Branch IS CLEAN.DRY. HAIRLESS & FREE REDNESS NEGRO/CUT Immunizations Ordered Filled Immunization Date Status Comments Sourc e Immunization Name Name SARS-COV-2 COVID-19 2020-08-17 Completed Unive rsity of PFIZER VACCINE 00:00:00 [facility] SARS-COV-2 COVID-19 2020-08-17 Completed Unive rsity of PFIZER VACCINE 00:00:00 [facility] SARS-COV-2 COVID-19 2020-07-27 Completed Unive rsity of PFIZER VACCINE 00:00:00 [facility] SARS-COV-2 COVID-19 2020-07-27 Completed Unive rsity of PFIZER VACCINE 00:00:00 [facility] SARS-COV-2 COVID-19 2020-07-27 Completed Unive rsity of PFIZER VACCINE 00:00:00 [facility] Vital Signs Vital Name Observation Time Observation Value Comments Source Systolic blood 2020-04-19 21:20:00 141 mm[Hg] [facility] of [place] pressure Medical Branch Diastolic blood 2020-04-19 21:20:00 79 mm[Hg] Unive rsity [facility] pressure Medical Branch Heart rate 2020-04-19 21:20:00 69 /min [facility] Medical [place] Oxygen saturation 2020-04-19 21:20:00 97 /min [facility] in Arterial blood Medical Br anch by Pulse oximetry Procedures Procedure Date / Time Performing Clinician Source Performed AUTHORIZATION FOR 2020-05-09 06:01:00 Doctor Unassigned, No [facility] RELEASE OF PHI Name Medical Branch EXTERNAL PROVIDER 2020-04-10 06:01:00 Doctor Unassigned, No [facility] Name Medical Branch ASSIGNMENT OF BENEFITS 2020-03-22 18:48:04 Doctor Unassigned, No [facility] Medical Branch Encounters Start End Encounter Admission Attending Care Care Encounter Source Date/Time Date/Time Type Type Clinicians Facility Department ID 2020-12-17 2020-12-17 AMANDA Alberto 1.2.840.114 [id number] Univers 00:00:00 00:00:00 Ekaterina Barnes [id number] itWaqas [id number] [facility]io [phone] [address] 2020-08-27 2020-08-27 [facility] 1.2.840.114 [id number] Univers 00:00:00 00:00:00 Ekaterina Barnes [id number] it[id number] [phone] [address] 2020-08-17 2020-08-17 Outpatient [facility] [id number] Univers 10:40:00 10:40:00 ity of [facility] 2020-07-29 2020-07-29 Refill Ameya, [facility] 1.2.840.114 [id number] Univers 00:00:00 00:00:00 Ekaterina Barnes [id number] [id number] [phone] [address] 2020-07-27 2020-07-27 Outpatient [facility] [id number] Univers 11:10:00 11:10:00 ity of [facility] 2020-07-19 2020-07-19 [facility] 1.2.840.114 [id number] Univers 00:00:00 00:00:00 Ekaterina Barnes [id number] [place] [id number] [phone] [address] 2020-05-09 2020-05-09 Orders Doctor MILLER 1.2.840.114 [id number] Univers 00:00:00 00:00:00 Only Unassigned, LYLY [id number] ity of [place] [facility] [id number] Jamel as [phone] [address] 2020-04-22 2020-04-22 Telephone [facility] 1.2.840.114 [id number] Univers 00:00:00 00:00:00 Ekaterina Barnes [id number] it[id number] [phone] [address] 2020-04-19 2020-04-19 Office Ameya [facility] 1.2.840.114 [id number] Univers 14:41:49 15:51:48 Visit Ekaterina Barnes [id number] [place] [id number] [phone] Pa dical nal 092 [facility] 2020-04-19 2020-04-19 Outpatient R AMEYA EKATERINA [facility] [id number] Univers 14:40:00 14:40:00 EKATERINA PETE [id number] ity [facility] [place] [facility] 2020-04-19 2020-04-19 Outpatient R AMEYA EKATERINA [facility] [id number] Univers 14:40:00 14:40:00 [facility] 2020-04-10 Orders Doctor MILLER 1.2.840.114 [id number] 00:00:00 00:00:00 Only Unassigned, LYLY [id number] [place] [facility] [phone] [facility] 2020-04-10 2020-04-10 Orders Doctor ANGELA 1.2.840.114 [id number] Univers 00:00:00 00:00:00 Only Unassigned, LYLY [id number] ity of [place] [facility] [id number] Jamel as [phone] [address] 2020-04-02 2020-04-02 Telephone Ameya [facility] 1.2.840.114 [id number] 00:00:00 00:00:00 Ekaterina Barnes [id number] [place] [id number] Professio [phone] nal [address] [place] [address] 2020-04-02 2020-04-02 Telephone Ameya [facility] 1.2.840.114 [id number] [facility] 00:00:00 00:00:00 Ekaterina Barnes [id number] [id number] [phone] Pa dical nal 092 [facility] 2020-03-22 2020-03-22 Office Ameya [facility] 1.2.840.114 [id number] 13:50:01 16:12:48 Visit Ekaterina Barnes [id number] [place] [id number] Professio [phone] [address] 2020-03-22 2020-03-22 Office Ameya [facility] 1.2.840.114 [id number] [facility] 13:50:01 16:12:48 Visit Ekaterina Barnes [id number] it[place] [id number] [place] [phone] Pa dical [address] 2020-03-22 2020-03-22 Outpatient R EKATERINA PETE [facility] [id number] Univers 13:40:00 13:40:00 EKATERINA PETE itmargareth [facility] [place] [facility] 2020-03-22 2020-03-22 Orders Doctor ANGELA 1.2.840.114 [id number] Univers 00:00:00 00:00:00 Only Unassigned, LYLY [id number] ity of [place] [facility] [id number] Jamel as [phone] [place] [address] Branch Results This patient has no known results.
== END 2021-04-10 21:42 | disposition home or self-care (01) ==
LOC: ER 17:58
DX: R55 Syncope and collapse (principal); R53.1 Weakness
CPT/HCPCS: 36415; 70450; 71045; 80048; 80076; 81003; 81015; 83735; 83880; 84484; 85025; 85610; 87077; 87086; 87088; 87186; 93005; 99285

== ENCOUNTER 2021-04-21 17:37 | Inpatient (IN) | payer OTHER ==
--- OUTSIDE RECORDS SUMMARY | 2021-04-21 17:41 | XMS REPORT | Continuity of Care Document ---
:[address] [facility] t Address [address] [place] [address] Care Team Providers Name Role Phone Ameya [...] Drug Active Univers ALLERGIE Class ity of [facility] Social History Social Habit Start Date Stop Date Quantity Comments Source Exposure to Not sure [facility] SARS-CoV-2 (event) Medica l Branch Tobacco use and 2020-04-19 2020-04-[address] [facility] exposure 00:00:00 00:00:00 [facility] Sex Assigned At [address] 1945 [facility] 00:00:00 00:00:00 [facility] Smoking Status Start Date Stop Date Source Unknown if ever smoked [facility] Never smoker [facility] Medications Ordered Filled Start Stop Current Ordering Indication Dosage Frequency Signature Comments Components Source Medication Medication Date Date Medication? Clinician (SIG) Name Name GALANTAMINE Yes [id number] TAKE ONE Univers 8 mg tablet 7-20 TABLET BY ity of 00:00: MOUTH 2 [place] 00 TIMES A Medical DAY AT 8AM Branch AND 8PM galantamine Yes [id number] 8mg Take 1 Univers 8 mg tablet 3-03 tablet by ity of 00:00: mouth 2 [place] 00 (two) Medical times Branch daily. galantamine 2020-0 Yes [id number] 8mg Take 1 Univers 8 mg tablet 3-03 tablet by ity of 00:00: mouth (two) Medical times Branch daily. galantamine 2020-0 2021- No [id number] 8mg Take 1 Univers 8 mg tablet 3-03 07-20 tablet by it y of 00:00: 00:00 mouth 00 : (two) Medical times Branch daily. galantamine 2020-1 Yes [id number] 8mg Take 1 Univers 8 mg tablet 0-23 tablet by ity of 00:00: mouth (two) Medical times Branch daily. galantamine 2020-1 Yes [id number] 8mg Take 1 Univers 8 mg tablet 0-23 tablet by ity of 00:00: mouth (two) Medical times Branch daily. galantamine 2020-1 Yes [id number] 8mg Take 1 Univers 8 mg tablet 0-23 tablet by ity of 00:00: mouth ([facility]) Medical times Branch daily. galantamine 2020-1 Yes [id number] 8mg Take 1 Univers 8 mg tablet 0-23 tablet by ity of 00:00: mouth ([facility]) Medical times Branch daily. galantamine 2020-1 Yes [id number] 8mg Take 1 Univers 8 mg tablet 0-23 tablet by ity of 00:00: mouth ([facility]) Medical times Branch daily. galantamine 2020-1 Yes [id number] 8mg Take 1 Univers 8 mg tablet 0-23 tablet by ity of 00:00: mouth ([facility]) Medical times Branch daily. galantamine 2020-1 Yes [id number] 8mg Take 1 Univers 8 mg tablet 0-23 tablet by ity of 00:00: mouth ([facility]) Medical times Branch daily. galantamine 2020-1 Yes [id number] 8mg Take 1 Univers 8 mg tablet 0-23 tablet by ity of 00:00: mouth (two) Medical times Branch daily. galantamine 2020-1 Yes [id number] 8mg Take 1 Univers 8 mg tablet 0-23 tablet by ity of 00:00: mouth (two) Medical times Branch daily. galantamine 2020-1 Yes [id number] 8mg Take 1 Univers 8 mg tablet 0-23 tablet by ity of 00:00: mouth 2 [place] 00 (two) Medical times Branch daily. galantamine 2019-05- No [id number] 8mg Take 1 Univers 8 mg tablet 0-23 03-03 tablet by it y of 00:00: 00:00 mouth 2 [place] 00 :00 (two) Medical times Branch daily. verapamiL 2019-05 Yes Univers 240 mg ER 0-16 ity of tablet 00:00: [place] [facility] verapamiL 2019-05 Yes Univers 240 mg ER 0-16 ity of tablet 00:00: [place] [facility] verapamiL 2019-05 Yes Univers 240 mg ER 0-16 ity of tablet 00:00: [place] [facility] verapamiL 2019-05 Yes Univers 240 mg ER 0-16 ity of tablet 00:00: [place] [facility] verapamiL 2019-05 Yes Univers 240 mg ER 0-16 ity of tablet 00:00: [place] [facility] verapamiL 2019-05 Yes Univers 240 mg ER 0-16 ity of tablet 00:00: [place] [facility] verapamiL 2019-05 Yes Univers 240 mg ER 0-16 ity of tablet 00:00: [place] [facility] verapamiL 2019-05 Yes Univers 240 mg ER 0-16 ity of tablet 00:00: [place] [facility] verapamiL 2019- Yes Univers 240 mg ER 0-16 ity of tablet 00:00: [place] [facility] verapamiL 2019- Yes Univers 240 mg ER 0-16 ity of tablet 00:00: [place] [facility] verapamiL 2019- Yes Univers 240 mg ER 0-16 ity of tablet 00:00: [place] [facility] verapamiL 2019- Yes Univers 240 mg ER 0-16 ity of tablet 00:00: [place] [facility] verapamiL 2019-05 Yes Univers 240 mg ER 0-16 ity of tablet 00:00: [place] [address] Medical Branch verapamiL 2019- Yes Univers 240 mg ER 0-16 ity of tablet 00:00: [place] [facility] memantine 2019-05 Yes 10mg Take 10 mg Un ke 10 mg 0-14 by mouth 2 ity of tablet 00:00: (two) [place] [address] times Medical daily. Branch valsartan 2019-05 Yes 40mg Take 40 mg Un ke 40 mg 0-14 by mouth ity of tablet 00:00: daily. [place] [address] Medical Branch memantine 2020-1 Yes 10mg Take [...] ity of tablet 00:00: daily. Medical Branch levothyroxi 2020-0 Yes 125ug Take 125 U nivers ne 125 mcg 9-14 mcg by ity of tablet 00:00: mouth. [place] [facility] levothyroxi 2020-0 Yes 125ug Take 125 U nivers ne 125 mcg 9-14 mcg by ity of tablet 00:00: mouth. [place] [facility] levothyroxi 2020-0 Yes 125ug Take 125 U nivers ne 125 mcg 9-14 mcg by ity of tablet 00:00: mouth. [place] [facility] levothyroxi 2020-0 Yes 125ug Take 125 U nivers ne 125 mcg 9-14 mcg by ity of tablet 00:00: mouth. [place] [facility] levothyroxi 2020-0 Yes 125ug Take 125 U nivers ne 125 mcg 9-14 mcg by ity of tablet 00:00: mouth. [place] [facility] levothyroxi 2020-0 Yes 125ug Take 125 U nivers ne 125 mcg 9-14 mcg by ity of tablet 00:00: mouth. [place] [facility] levothyroxi 2020-0 Yes 125ug Take 125 U nivers ne 125 mcg 9-14 mcg by ity of tablet 00:00: mouth. [place] [facility] levothyroxi 2020-0 Yes 125ug Take 125 U nivers ne 125 mcg 9-14 mcg by ity of tablet 00:00: mouth. [place] [facility] levothyroxi 2020-0 Yes 125ug Take 125 U nivers ne 125 mcg 9-14 mcg by ity of tablet 00:00: mouth. [place] [address] Medical Branch levothyroxi 2020-0 Yes 125ug Take 125 U nivers ne 125 mcg 9-14 mcg by ity of tablet 00:00: mouth. [place] [facility] levothyroxi 2020-0 Yes 125ug Take 125 U nivers ne 125 mcg 9-14 mcg by ity of tablet 00:00: mouth. [place] [address] Medical Branch levothyroxi 2020-0 Yes 125ug Take 125 U nivers ne 125 mcg 9-14 mcg by ity of tablet 00:00: mouth. [place] [address] Medical Branch levothyroxi 2020-0 Yes 125ug Take 125 U nivers ne 125 mcg 9-14 mcg by ity of tablet 00:00: mouth. [place] [address] Medical Branch levothyroxi 2020-0 Yes 125ug Take 125 U nivers ne 125 mcg 9-14 mcg by ity of tablet 00:00: mouth. [place] 00 Medical Branch atorvastati 2020-0 Yes 40mg Take 40 mg Univers n 40 mg 8-30 by mouth ity of tablet 00:00: at [place] [address] bedtime. Medical Branch atorvastati 2019-0 Yes 40mg Take 40 mg Univers n 40 mg 8-30 by mouth ity of tablet 00:00: at [place] [address] bedtime. Medical Branch atorvastati 2019-0 Yes 40mg Take 40 mg Univers n 40 mg 8-30 by mouth ity of tablet 00:00: at [place] [address] bedtime. Medical Branch galantamine 2019-0 Yes 4mg Take 4 mg U nivers 4 mg tablet 8-30 by mouth 2 it y of 00:00: (two) [place] [address] times Medical daily. Branch atorvastati 0 Yes 40mg Take 40 mg Univers n 40 mg 8-30 by mouth ity of tablet 00:00: at [place] [address] bedtime. Medical Branch atorvastati 2019-0 Yes 40mg Take 40 mg Univers n 40 mg 8-30 by mouth ity of tablet 00:00: at [place] [address] bedtime. Medical Branch rivastigmin 0 Yes APPLY 1 Uni vers e 4.6 mg/24 8-30 PATCH ity of hr patch 00:00: DAILY [place] [address] APPLYTO Medical AREA THAT Branch IS CLEAN.DRY. HAIRLESS & FREE REDNESS NEGRO/CUT atorvastati 2019-0 Yes 40mg Take 40 mg Univers n 40 mg 8-30 by mouth ity of tablet 00:00: at [place] [address] bedtime. Medical Branch atorvastati 2020-0 Yes 40mg Take 40 mg Univers n 40 mg 8-30 by mouth ity of tablet 00:00: at [place] [address] bedtime. Medical Branch atorvastati 2020-0 Yes 40mg Take 40 mg Univers n 40 mg 8-30 by mouth ity of tablet 00:00: at [place] [address] bedtime. Medical Branch atorvastati 2020-0 Yes 40mg Take 40 mg Univers n 40 mg 8-30 by mouth ity of tablet 00:00: at [place] [address] bedtime. Medical Branch atorvastati 2020-0 Yes 40mg Take 40 mg Univers n 40 mg 8-30 by mouth ity of tablet 00:00: at [place] 00 bedtime. Medical Branch atorvastati 2020-0 Yes 40mg Take 40 mg Univers n 40 mg 8-30 by mouth ity of tablet 00:00: at [place] [address] bedtime. Medical Branch atorvastati 2020-0 Yes 40mg Take 40 mg Univers n 40 mg 8-30 by mouth ity of tablet 00:00: at [place] [address] bedtime. Medical Branch atorvastati 2020-0 Yes 40mg Take 40 mg Univers n 40 mg 8-30 by mouth ity of tablet 00:00: at [place] [address] bedtime. Medical Branch atorvastati 2020-0 Yes 40mg Take 40 mg Univers n 40 mg 8-30 by mouth ity of tablet 00:00: at [place] [address] bedtime. Medical Branch rivastigmin 2020-0 2020- No APPLY 1 Un ke e 4.6 mg/24 8-30 12-15 PATCH ity of hr patch 00:00: 00:00 DAILY [place] 00 :00 APPLYTO Medical AREA THAT Branch [...] ity of hr patch 00:00: 00:00 DAILY [place] 00 :00 APPLYTO Medical AREA THAT Branch IS CLEAN.DRY. HAIRLESS & FREE REDNESS NEGRO/CUT Immunizations Ordered Filled Immunization Date Status Comments Sour e Immunization Name Name SARS-COV-2 COVID-19 2020-08-17 Completed Unive rsity of PFIZER VACCINE 00:00:00 [facility] SARS-COV-2 COVID-19 2020-08-17 Completed Unive rsity of PFIZER VACCINE 00:00:00 [facility] SARS-COV-2 COVID-19 2020-07-27 Completed Unive rsity of PFIZER VACCINE 00:00:00 [facility] SARS-COV-2 COVID-19 2020-07-27 Completed Unive rsity of PFIZER VACCINE 00:00:00 [facility] SARS-COV-2 COVID-19 2020-07-27 Completed Unive rsity of PFIZER VACCINE 00:00:00 [facility] Vital Signs Vital Name Observation Time Observation Value Comments Source Systolic blood 2020-04-19 21:20:00 141 mm[Hg] [facility] [place] pressure Medical Branch Diastolic blood 2020-04-19 21:20:00 79 mm[Hg] Unive rsity of [place] pressure Medical Branch Heart rate 2020-04-19 21:20:00 69 /min [facility] Medical Branch Oxygen saturation 2020-04-19 21:20:00 97 /min [facility] in Arterial blood Medical Br anch by Pulse oximetry Procedures Procedure Date / Time Performing Clinician Source Performed AUTHORIZATION FOR 2020-05-09 06:01:00 Doctor Unassigned, No [facility] RELEASE OF PHI Name Medical Branch EXTERNAL PROVIDER 2020-04-10 06:01:00 Doctor Unassigned, No [facility] Name Medical Branch ASSIGNMENT OF BENEFITS 2020-03-22 18:48:04 Doctor Unassigned, No [facility] Name Medical Branch Encounters Start End Encounter Admission Attending Care Care Encounter Source Date/Time Date/Time Type Type Clinicians Facility Department ID 2020-12-17 2020-12-17 RefAMANDA Nichole 1.2.840.114 [id number] Univers 00:00:00 00:00:00 Ekaterina Barnes [id number] itWaq[place] [id number] [place] Professio [phone] La dical [facility] 2020-08-27 2020-08-27 Telephone [facility] 1.2.840.114 [id number] Univers 00:00:00 00:00:00 Ekaterina Barnes [id number] ity [id number] [phone] [address] 2020-08-17 2020-08-17 Outpatient [facility] [id number] Univers 10:40:00 10:40:00 ity of [facility] 2020-07-29 2020-07-29 Refill [facility] 1.2.840.114 [id number] Univers 00:00:00 00:00:00 Ekaterina Barnes [id number] it[id number] [phone] [address] 2020-07-27 2020-07-27 Outpatient [facility] [id number] Univers 11:10:00 11:10:00 ity of [facility] 2020-07-19 2020-07-19 Telephone [facility] 1.2.840.114 [id number] Univers 00:00:00 00:00:00 Ekaterina Barnes [id number] [id number] [phone] [address] 2020-05-09 2020-05-09 Orders Doctor MILLER 1.2.840.114 [id number] Univers 00:00:00 00:00:00 Only Unassigned, LYLY [id number] ity of [place] [facility] [id number] Jamel as [phone] [address] 2020-04-22 2020-04-22 Telephone [facility] 1.2.840.114 [id number] Univers 00:00:00 00:00:00 Ekaterina Barnes [id number] it[id number] [phone] [address] 2020-04-19 2020-04-19 Office [place], [facility] 1.2.840.114 [id number] Univers 14:41:49 15:51:48 Visit Ekaterina Barnes [id number] [id number] [phone] La dical nal 2 [facility] 2020-04-19 2020-04-19 Outpatient R AMEYA EKATERINA [facility] [id number] Univers 14:40:00 14:40:00 EKATERINA PETE [id number] ity [facility] 2020-04-19 2020-04-19 Outpatient R AMEYA EKATERINA [facility] [id number] Univers 14:40:00 14:40:00 [facility] 2020-04-10 2020-04-10 Orders Doctor ANGELA 1.2.840.114 [id number] 00:00:00 00:00:00 Only Unassigned, LYLY [id number] [place] [facility] [phone] [facility] 2020-04-10 2020-04-10 Orders Doctor ANGELA 1.2.840.114 [id number] Univers 00:00:00 00:00:00 Only Unassigned, LYLY [id number] ity of [place] [facility] [id number] Jamel as [phone] [address] 2020-04-02 2020-04-02 Telephone Ameya, [facility] 1.2.840.114 [id number] 00:00:00 00:00:00 Ekaterina Barnes [id number] [place] [id number] Professio [phone] [address] 2020-04-02 2020-04-02 Telephone Ameya [facility] 1.2.840.114 [id number] [facility] 00:00:00 00:00:00 Ekaterina Barnes [id number] it[id number] [phone] La dical nal 092 [facility] 2020-03-22 2020-03-22 Office Ameya, [facility] 1.2.840.114 [id number] 13:50:01 16:12:48 Visit Ekaterina Francis Barnes [id number] [place] [id number] Professio [phone] [address] 2020-03-22 2020-03-22 Office Ameya [facility] 1.2.840.114 [id number] [facility] 13:50:01 16:12:48 Visit Ekaterina Barnes [id number] it[id number] [phone] La dical [address] 2020-03-22 2020-03-22 Outpatient R EKATERINA PETE [facility] [id number] Univers 13:40:00 13:40:00 EKATERINA PETE itmargareth of [facility] 2020-03-22 2020-03-22 Orders Doctor ANGELA 1.2.840.114 [id number] Univers 00:00:00 00:00:00 Only Unassigned, LYLY [id number] ity of [place] [facility] [id number] Jamel as [phone] [place] [address] Branch Results This patient has no known results.
[2021-04-21 18:59] LABS: Absolute Lymphocytes (CBC) 1.4 K/uL (0.7-4.9); Basophils % 0.8 % (0-1.3); Hematocrit 37.2 % (36.0-45.0); MPV 7.9 fL (7.6-11.3)
[2021-04-21 19:02] LABS: Protime INR 1.05
--- NOTE | 2021-04-21 19:04 | RAD REPORT ---
EXAM DESCRIPTION: Jazmin Single View04/21/2021 6:04 pm CLINICAL HISTORY: Shortness breath COMPARISON: April 10, 2021 FINDINGS: The lungs appear clear of acute infiltrate. The heart is normal size. Calcified granuloma right lung. IMPRESSION: No acute abnormalities displayed
[2021-04-21 19:13] LABS: Arterial Blood Carboxyhemoglob 1.1 % (0-1.5); Blood Gas Oxyhemoglobin 84.4 % (94-97); Blood O2 Saturation 86.5 % (92-98.5)
[2021-04-21 19:20] LABS: Albumin 3.8 g/dL (3.4-5.0); Bilirubin Direct 0.3 mg/dL (0-0.2); Bilirubin Total 1.2 mg/dL (0.2-1.0); Magnesium 2.3 mg/dL (1.8-2.4); Potassium 3.5 mmol/L (3.5-5.1)
--- NOTE | 2021-04-21 20:37 | RAD REPORT ---
EXAM DESCRIPTION: CT - Chest For Pe Angio - 04/21/2021 8:14 pm CLINICAL HISTORY: sob COMPARISON: None. TECHNIQUE: Dynamically enhanced axial 3 mm thick images of the chest were obtained during administra tion of <100> mL Isovue 370 IV contrast. Coronal and oblique reconstruction images were generated and reviewed. Exam utilizes a protocol for optimal evaluation of pulmonary arterial tree. Maximum intensity projections 3D imaging was utilized All CT scans are performed using dose optimization technique as appropriate and may include automated exposure control or mA/KV adjustment according to patient size. FINDINGS: Thrombus is present within the distal left main pulmonary artery extending into the left u pper and left lower lobe pulmonary arteries. Thrombus is present within right upper lobe, right middl e lobe and right lower lobe pulmonary arteries. A thoracic aortic aneurysm is not noted. A pleural effusion is not seen. A pericardial effusion is not seen. A pulmonary infarction is not seen. IMPRESSION: Bilateral pulmonary emboli
--- NOTE | 2021-04-21 20:41 | ER ---
Nurse's Notes [facility] Name: Cony Bertrand Age: 76 yrs Sex: Female : 1945 Arrival Date: 04/21/2021 Time: 17:49 Bed 13 Private MD: Diagnosis: Pulmonary embolism without acute cor pulmonale-bilateral Presentation: 04/21 17:53 Chief complaint: EMS states: Toned out for low oxygen saturation. Upon arrival to 1 [facility] oxygen saturation was 88% on RA. Coronavirus screen: At this time, the client does not indicate any symptoms associated with coronavirus-19. Ebola Screen: No symptoms or risks identified at this time. Initial Sepsis Screen: Does the patient meet any 2 criteria? No. Patient's initial sepsis screen is negative. Does the patient have a suspected source of infection? No. Patient's initial sepsis screen is negative. Risk Assessment: Do you want to hurt yourself or someone else? Patient reports no desire to harm self or others. Onset of symptoms was April 21, 2021. 17:53 Method Of Arrival: Ambulatory ld1 17:53 Acuity: VIOLETTE 3 ld1 20:28 Note pt puffing cheeks out and holding breath. while holding breath pts O2 saturation jh5 went down in to 86%. pt did this for about a min and 2 mins. then returns to deep breathing. O2 sat returned to 98% on RA. Triage Assessment: 18:01 General: Appears in no apparent distress. comfortable, Behavior is calm, cooperative, ld1 appropriate for age. Pain: Denies pain. EENT: No signs and/or symptoms were reported regarding the EENT system. Neuro: Level of Consciousness is awake, alert, obeys commands, Oriented to person, place, time, situation. Cardiovascular: Capillary refill < 3 seconds Patient's skin is warm and dry. Respiratory: Airway is patent Respiratory effort is even, unlabored, Respiratory pattern is regular, symmetrical. Respiratory: Reports shortness of breath GI: Abdomen is flat, non-distended. : No signs and/or symptoms were reported regarding the genitourinary system. Derm: No signs and/or symptoms reported regarding the dermatologic system. Musculoskeletal: No signs and/or symptoms reported regarding the musculoskeletal system. Historical: - Allergies: 18:00 none; ld1 18:00 unknown medication; ld1 - Home Meds: 18:00 atorvastatin 40 mg Oral tab 1 tab once daily [Active]; donepezil 10 mg Oral tab 1 tab ld1 once daily [Active]; etodolac 500 mg Oral tab 1 tab 2 times per day [Active]; levothyroxine 137 mcg tab 1 tab once daily [Active]; Klonopin 1 mg Oral TbDi [Active]; valsartan 40 mg Oral tab 1 tab daily [Active]; verapamil 240 mg Oral TbER 1 tab twice a day [Active]; - PMHx: 18:00 Alzheimer's disease; Anxiety; Dementia; High Cholesterol; Hypertension; Hypothyroidism; ld1 - PSHx: 18:01 None; ld1 - Immunization history:: Adult Immunizations up to date. - Social history:: Smoking status: Patient denies any tobacco usage or history of. Screenin:04 Abuse screen: Denies threats or abuse. Denies injuries from another. Nutritional ld1 screening: No deficits noted. Tuberculosis screening: No symptoms or risk factors identified. Fall Risk None identified. Assessment: 18:04 Reassessment: See triage assessment. ld1 20:31 General: Appears in no apparent distress. comfortable, Behavior is calm, cooperative, jh5 appropriate for age. Pain: Denies pain. Neuro: No deficits noted. Cardiovascular: No deficits noted. Respiratory: Airway is patent Trachea midline Respiratory effort is even, unlabored, relaxed, Respiratory pattern is regular, symmetrical, Breath sounds are clear bilaterally. Onset: The symptoms/episode began/occurred. GI: No deficits noted. No signs and/or symptoms were reported involving the gastrointestinal system. : No deficits noted. No signs and/or symptoms were reported regarding the genitourinary system. EENT: No deficits noted. No signs and/or symptoms were reported regarding the EENT system. Derm: No deficits noted. No signs and/or symptoms reported regarding the dermatologic system. Musculoskeletal: No deficits noted. No signs and/or symptoms reported regarding the musculoskeletal system. Vital Signs: 17:53 BP 111 / 69; Pulse 86; Resp 16; Temp 98.3(O); Pulse Ox 100% on 4 lpm NC; Weight 84.37 ld1 kg; Height 5 ft. 4 in. (162.56 cm); 20:27 BP 112 / 78; Pulse 80; Resp 16; Temp 98.6(O); Pulse Ox 100% on R/A; Pain 0/10; jh5 22:00 BP 118 / 70; Pulse 88; Resp 18; Temp 98.8(O); Pulse Ox 100% on R/A; Pain 0/10; kc4 17:53 Body Mass Index 31.93 (84.37 kg, 162.56 cm) ld1 ED Course: 17:49 Patient arrived in ED. ld1 17:54 [facility]-C [facility] kb 17:54 Jameel Georges MD is Attending Physician. kb 18:00 Triage completed. ld1 18:01 Arm band placed on right wrist. ld1 18:02 Tamara Calvert, SINA is Primary Nurse. jh5 18:04 XRAY Chest (1 view) In Process Unspecified. EDMS 18:04 Patient has correct armband on for positive identification. Bed in low position. Call ld1 light in reach. Side rails up X2. Pulse ox on. NIBP on. Door closed. Noise minimized. Warm blanket given. 18:04 No provider procedures requiring assistance completed. ld1 18:27 COVID-19 SARS RT PCR (Document "Date of Onset" if Symptomatic) Sent. jh5 18:53 Inserted saline lock: 22 gauge in left antecubital area, using aseptic technique. Blood iw collected. 19:12 CBC with Diff Sent. jh5 19:12 Type And Screen Sent. jh5 19:12 ABG Sent. jh5 19:12 SARS-COV-2 RT PCR Sent. jh5 19:12 Basic Metabolic Panel Sent. jh5 19:12 Basic Metabolic Panel Sent. jh5 19:12 LFT's Sent. jh5 19:12 Magnesium Sent. jh5 19:12 NT PRO-BNP Sent. jh5 20:14 CT Chest For PE Angio In Process Unspecified. EDMS 20:40 Alan King MD is Hospitalizing Provider. kb 20:40 Julián King MD is Hospitalizing Provider. kb Administered Medications: 21:59 Drug: Lovenox (enoxaparin) 1 mg/kg Route: Sub-Q; Site: abdomen; jh5 22:00 Drug: Lovenox (enoxaparin) 1 mg/kg Route: Sub-Q; Site: abdomen; jh5 04/22 02:10 Follow up: Response: No adverse reaction kc4 Outcome: 04/21 20:40 Decision to Hospitalize by Provider. 04/22 11:38 Patient left the ED. iw Signatures: Dispatcher [employer] EDEla Woo, IMPLEMENTATION CONSULTANT-C IMPLEMENTATION CONSULTANT-CkPhilly Mchugh, RN RN iw Rosamaria Ghosh RN RN [email or web address] Eulalia Amaral kc4 Tamara Calvert RN RN jh5 Corrections: (The following items were deleted from the chart) 04/21 20:27 19:12 Type and Screen drawn and sent. [facility] MARIYACO
--- NOTE | 2021-04-21 20:41 | EDPHYS ---
Physician Documentation [facility] Name: Cony Bertrand Age: 76 yrs Sex: Female : 1945 Arrival Date: 04/21/2021 Time: 17:49 Bed 13 Private MD: ED Physician Jameel Georges HPI: 04/21 20:27 This 76 yrs old Female presents to ER via Ambulatory with complaints of LOW OXYGEN kb SATURATION. 20:27 EMS reports they were toned out for low oxygen sats. Pt states she has not been short kb of breath. visitor states pt has not been sick. . Onset: The symptoms/episode began/occurred just prior to arrival. Severity of symptoms: At their worst the symptoms were mild in the emergency department the symptoms are unchanged. The patient has not experienced similar symptoms in the past. The patient has not recently seen a physician. Historical: - Allergies: 18:00 none; ld1 18:00 unknown medication; ld1 - Home Meds: 18:00 atorvastatin 40 mg Oral tab 1 tab once daily [Active]; donepezil 10 mg Oral tab 1 tab ld1 once daily [Active]; etodolac 500 mg Oral tab 1 tab 2 times per day [Active]; levothyroxine 137 mcg tab 1 tab once daily [Active]; Klonopin 1 mg Oral TbDi [Active]; valsartan 40 mg Oral tab 1 tab daily [Active]; verapamil 240 mg Oral TbER 1 tab twice a day [Active]; - PMHx: 18:00 Alzheimer's disease; Anxiety; Dementia; High Cholesterol; Hypertension; Hypothyroidism; ld1 - PSHx: 18:01 None; ld1 - Immunization history:: Adult Immunizations up to date. - Social history:: Smoking status: Patient denies any tobacco usage or history of. ROS: 18:54 Constitutional: Negative for fever, chills, and weight loss. kb 18:54 Respiratory: Positive for shortness of breath, Negative for cough, dyspnea on exertion, hemoptysis, orthopnea, pleurisy, sputum production, wheezing. 18:54 All other systems are negative. Exam: 18:54 Constitutional: This is a well developed, well nourished patient who is awake, alert, kb and in no acute distress. Head/Face: Normocephalic, atraumatic. ENT: Moist Mucous membranes Cardiovascular: Regular rate and rhythm with a normal S1 and S2. No gallops, murmurs, or rubs. No pulse deficits. Respiratory: Respirations even and unlabored. No increased work of breathing, no retractions or nasal flaring. Skin: Warm, dry with normal turgor. Normal color. MS/ Extremity: Pulses equal, no cyanosis. Neurovascular intact. Full, normal range of motion. 18:54 Neuro: Exam negative for acute changes. Vital Signs: 17:53 BP 111 / 69; Pulse 86; Resp 16; Temp 98.3(O); Pulse Ox 100% on 4 lpm NC; Weight 84.37 ld1 kg; Height 5 ft. 4 in. (162.56 cm); 20:27 BP 112 / 78; Pulse 80; Resp 16; Temp 98.6(O); Pulse Ox 100% on R/A; Pain 0/10; jh5 22:00 BP 118 / 70; Pulse 88; Resp 18; Temp 98.8(O); Pulse Ox 100% on R/A; Pain 0/10; kc4 17:53 Body Mass Index 31.93 (84.37 kg, 162.56 cm) ld1 MDM: 17:54 Patient medically screened. kb 18:54 Data reviewed: vital signs, nurses notes. Data interpreted: Pulse oximetry: on room air kb is 100 %. Interpretation: normal. 20:28 ED course: Visitor states pt holds her breath and that is when her oxygen goes down. kb States this is something she does all of the time. 20:39 Counseling: I had a detailed discussion with the patient and/or guardian regarding: the kb historical points, exam findings, and any diagnostic results supporting the discharge/admit diagnosis, lab results, radiology results, the need for further work-up and treatment in the hospital. Physician consultation: Joesph VALDEZ was contacted at 20:39, regarding admission, to the telemetry unit. patient's condition, and will see patient in ED. 04/21 17:56 Order name: Basic Metabolic Panel kb 04/21 17:56 Order name: CBC with Diff; Complete Time: 19:05 kb 04/21 17:56 Order name: LFT's; Complete Time: 20:03 kb 04/21 17:56 Order name: Magnesium; Complete Time: 20:03 kb 04/21 17:56 Order name: NT PRO-BNP; Complete Time: 20:03 kb 04/21 17:56 Order name: PT-INR; Complete Time: 19:05 kb 04/21 17:56 Order name: Basic Metabolic Panel; Complete Time: 20:03 EDMS 04/21 18:04 Order name: COVID-19 SARS RT PCR (Document "Date of Onset" if Symptomatic) kb 04/21 18:05 Order name: SARS-COV-2 RT PCR; Complete Time: 20:03 EDMS 04/21 18:38 Order name: ABG; Complete Time: 19:14 kb 04/21 18:55 Order name: Type And Screen kb 04/21 18:56 Order name: CBC with Diff kb 04/22 07:26 Order name: CBC with Automated Diff EDMS 04/21 17:56 Order name: XRAY Chest (1 view); Complete Time: 19:05 kb 04/21 17:56 Order name: EKG; Complete Time: 17:56 kb 04/21 17:56 Order name: Cardiac monitoring; Complete Time: 18:27 kb 04/21 17:56 Order name: EKG - Nurse/Tech; Complete Time: 18:27 kb 04/21 17:56 Order name: IV Saline Lock; Complete Time: 18:57 kb 04/21 17:56 Order name: Labs collected and sent; Complete Time: 18:57 kb 04/21 17:56 Order name: O2 Per Protocol; Complete Time: 18:27 kb 04/21 17:56 Order name: O2 Sat Monitoring; Complete Time: 18:27 kb 04/21 19:08 Order name: CT Chest For PE Angio; Complete Time: 20:38 kb 04/22 07:26 Order name: Comprehensive Metabolic Panel EDMS 04/22 07:26 Order name: Lipid Profile EDMS 04/22 07:26 Order name: T4 Free EDMS 04/22 07:26 Order name: Magnesium EDMS 04/22 07:26 Order name: Thyroid Stimulating Hormone EDMS Administered Medications: 21:59 Drug: Lovenox (enoxaparin) 1 mg/kg Route: Sub-Q; Site: abdomen; 5 22:00 Drug: Lovenox (enoxaparin) 1 mg/kg Route: Sub-Q; Site: abdomen; jh5 04/22 02:10 Follow up: Response: No adverse reaction kc4 Disposition: 12:35 Co-signature as Attending Physician, Jameel Georges MD I agree with the assessment and kdr plan of care. Disposition Summary: 04/21/21 20:40 Hospitalization Ordered Hospitalization Status: Inpatient Admission kb Provider: Julián King Condition: Stable kb Problem: new kb Symptoms: are unchanged kb Bed/Room Type: Standard kb Location: Telemetry/MedSurg (Inpatient)(04/22/21 07:33) bd Room Assignment: 406(04/22/21 07:33) bd Diagnosis - Pulmonary embolism without acute cor pulmonale - bilateral kb Forms: - Medication Reconciliation Form kb - SBAR form kb Signatures: Dispatcher [employer] EDMS Ela Lowe FNP-C KITCHEN WORKER-Deysi Barnes Martha RN RN Jameel Fang MD MD kdr Dibbern, Lauren RN RN ld1 Tamara Calvert RN RN jh5 Eulalia Amaral kc4 Corrections: (The following items were deleted from the chart) 04/21 20:27 18:55 Type and Screen ordered. EDMS EDMS 20:46 20:40 Telemetry/MedSurg (Inpatient) kb mw 20:46 20:40 kb mw 04/22 07:33 04/21 20:46 [facility] ER HOLD mw bd 04/22 07:33 04/21 20:46 ERHOLD- mw bd
--- NOTE | 2021-04-21 21:45 | P.HP ---
Certification for Inpatient Patient admitted to: Inpatient With expected LOS: >2 Midnights Patient will require the following post-hospital care: None Practitioner: I am a practitioner with admitting privileges, knowledge of patient current condition, hospital course, and medical plan of care. Services: Services provided to patient in accordance with Admission requirements found in Title 42 Section 412.3 of the Code of Federal Regulations Patient History Date of Service: 04/21/21 Primary Care Provider: [facility] doctor Reason for admission: PE History of Present Illness: 76-year-old female with history of Alzheimer's dementia, hypertension, hyperlipidemia, hypothyroidism presents to the emergency department from [facility] for hypoxia. [facility] staff reported patient saturations were persistently around 88%. Patient was brought to the emergency department for evaluation, patient denied any shortness of breath not appear to be any respiratory distress at all but sats were in the low 90s on room air around 92% dropping into the high 80s on occasion. Patient was tolerating nasal cannula well labs were significant for GFR 40 1T bili 1.[address] angio of the chest which demonstrated bilateral pulmonary emboli, thrombus present within the distal left main pulmonary artery extending into the left upper and left lower pulmonary arteries, thrombus is present within the right upper lobe, right middle lobe and right lower lobe pulmonary arteries. Patient blood pres sure stable only on nasal cannula and periodically room air no distress noted. Patient given full dose Lovenox in the emergency department, ED provider wishes to admit for further evaluation and management. Allergies aspartame Allergy (Verified 03/28/17 21:03) Itching unknown medication Allergy (Uncoded 03/31/17 15:17) Unknown Home Medications: Verapamil HCl [Verapamil ER] 240 mg PO BID 03/27/15 Atorvastatin Calcium 1 tab PO BEDTIME 03/28/17 Donepezil HCl 1 tab PO DAILY 03/28/17 Levothyroxine Sodium 1 tab PO DAILY 03/28/17 Valsartan 1 tab PO DAILY 03/28/17 Iron/FA/Vit B-Com W/C [Hemocyte Plus] 1 tab PO DAILY #30 tab 04/08/17 Metronidazole 500 mg PO TID #30 tablet 04/08/17 Pantoprazole [Protonix Tab*] 40 mg PO BID #60 tab 04/08/17 levoFLOXacin [Levaquin] 500 mg PO DAILY #10 tab 04/08/17 - Past Medical/Surgical History Diabetic: No -: HTN -: Hypothyroidism -: Alzheimer's/dementia -: Hyperlipidemia -: Tonsilectomy Psychosocial/ Personal History: Patient is skilled nursing resident - Family History Father Notes: pt stated "none that I know of" Mother -: Cancer, Other (see notes) Notes: alzeimers. - Social History Smoking Status: Never smoker Alcohol use: No CD- Drugs: No Caffeine use: Yes Place of Residence: Home Review of Systems is unable to be obtained Physical Examination - Physical Exam General: Alert, Oriented x1 HEENT: Atraumatic, Normocephalic Neck: Supple Respiratory: Clear to auscultation bilaterally, Normal air movement Cardiovascular: No edema Capillary refill: <2 Seconds Gastrointestinal: Normal bowel sounds Musculoskeletal: No contractures, No erythema, No tenderness Integumentary: No significant lesion, No erythema, No warmth Neurological: Normal speech, Normal tone, Sensation intact - Studies Laboratory Data (last 24 hrs) 04/21/21 18:50: PT 12.1, INR 1.05 04/21/21 18:50: WBC 7.50, Hgb 12.1, Hct 37.2, Plt Count 230 04/21/21 18:50: Sodium 143, Potassium 3.5, BUN 26 H, Creatinine 1.27, Glucose 99, Magnesium 2.3, Total Bilirubin 1.2 H, AST 25, ALT 22, Alkaline Phosphatase 57 Assessment and Plan - Plan Assessment: Acute hypoxic respiratory failure secondary to bilateral pulmonary embolus Alzheimer's/dementia Hypertension Hyperlipidemia Hypothyroidism Plan: Acute hypoxic respiratory failure secondary to bilateral pulmonary embolus: Continue with full dose Lovenox, supplemental oxygen as needed. Patient currently on 2 L saturating at 95%. Obtain and verify home medications, pulmonology consulted. Alzheimer's/dementia: Patient at baseline mental status oriented x1 continue home medications Hypertension: Obtain and continue home medications Hyperlipidemia:Obtain and continue home medications lipid panel with morning lab Hypothyroidism:Obtain and continue home medications thyroid panel with morning lab DVT PPX: Full dose Lovenox Code status: Full code Discharge Plan: Home Plan to discharge in: 48 Hours - Advance Directives Does patient have a Living Will: No Does patient have a Durable POA for Healthcare: No - Code Status/Comfort Care Code Status Assessed: Yes (Full code) Critical Care: No Time Spent Managing Pts Care (In Minutes): 55
[2021-04-21] MEDS ORDERED: ENOXAPARIN 100 MG/ML SYR SQ ONE (21:48)
[2021-04-22] MEDS ORDERED: ONDANSETRON 4 MG/2 ML VIAL IV PRN (04:17)
[2021-04-22 05:09] VITALS: BMI 14.4
[2021-04-22 06:00] LABS: Absolute Lymphocytes (CBC) 1.1 K/uL (0.7-4.9); Basophils % 0.6 % (0-1.3); Lymphocytes % 18.4 % (15.3-44.8); MPV 8.2 fL (7.6-11.3); RBC Red Blood Cell Count 3.79 M/uL (3.86-4.86)
[2021-04-22 06:28] LABS: Albumin 3.1 g/dL (3.4-5.0); Bilirubin Total 1.2 mg/dL (0.2-1.0); Magnesium 2.2 mg/dL (1.8-2.4); Potassium 3.4 mmol/L (3.5-5.1); Protein, Total 6.7 g/dL (6.4-8.2); Thyroid Stimulating Hormone 1.07 uIU/mL (0.360-3.740)
[2021-04-22] MEDS ORDERED: KCL 20 MEQ/100 mL IVPB 20 MEQ/100 ML BAG IV SCH (07:00)
--- NOTE | 2021-04-22 08:27 | P.CNS ---
Date of Consult: 04/22/21 Primary Care Provider: custodial doctor Chief Complaint: PE History of Present Illness: Pt is 76 yrs of age Aw PE. Frined at the bedside/ Denies SOB/ HX of Dementia Poor historian 6 Allergies aspartame Allergy (Verified 03/28/17 21:03) Itching unknown medication Allergy (Uncoded 03/31/17 15:17) Unknown Home Medications: Verapamil HCl [Verapamil ER] 240 mg PO BID 03/27/15 Atorvastatin Calcium 1 tab PO BEDTIME 03/28/17 Donepezil HCl 1 tab PO DAILY 03/28/17 Levothyroxine Sodium 1 tab PO DAILY 03/28/17 Valsartan 1 tab PO DAILY 03/28/17 Iron/FA/Vit B-Com W/C [Hemocyte Plus] 1 tab PO DAILY #30 tab 04/08/17 Metronidazole 500 mg PO TID #30 tablet 04/08/17 Pantoprazole [Protonix Tab*] 40 mg PO BID #60 tab 04/08/17 levoFLOXacin [Levaquin] 500 mg PO DAILY #10 tab 04/08/17 Apixaban [Eliquis] 5 mg PO BID 30 Days #1 tab.ds.pk 04/22/21 Rivaroxaban [Xarelto] 1 each PO SEECOM 30 Days #1 tab.ds.pk 04/22/21 - Past Medical/Surgical History Diabetic: No -: HTN -: Hypothyroidism -: Alzheimer's/dementia -: Hyperlipidemia -: Tonsilectomy Psychosocial/ Personal History: Patient is longterm resident - Family History Father Notes: pt stated "none that I know of" Mother Medical History: Cancer, Other (see notes) Notes: mark. - Social History Alcohol use: No CD- Drugs: No Caffeine use: No Place of Residence: Home Review of Systems 10-point ROS is otherwise unremarkable Physical Examination Temp Pulse Resp BP Pulse Ox 98.8 F 68 18 123/79 94 04/22/21 03:08 04/22/21 03:08 04/22/21 03:08 04/22/21 03:08 04/22/21 03:08 General: Alert, Oriented x1, Cooperative Respiratory: Clear to auscultation bilaterally Cardiovascular: No edema, Normal S1 S2 Laboratory Data (last 24 hrs) 04/21/21 18:56: WBC Cancelled, Hgb Cancelled, Hct Cancelled, Plt Count Cancelled 04/21/21 18:50: PT 12.1, INR 1.05 04/21/21 18:50: WBC 7.50, Hgb 12.1, Hct 37.2, Plt Count 230 04/21/21 18:50: Sodium 143, Potassium 3.5, BUN 26 H, Creatinine 1.27, Glucose 99, Magnesium 2.3, Total Bilirubin 1.2 H, AST 25, ALT 22, Alkaline Phosphatase 57 - Problems (1) Pulmonary embolism Current Visit: Yes Status: Acute Plan: Pt is 76 yrs of age AW PE, hemodymically stable O2 satisfactory/ Hx of GIB 2 yrs ago. Agree with full anticoagualtion for now/If pt blleds brianne consider IVC filter/ LAbs revoewed l;ghazala long antiocoagualtion/ DC renetta eF/u with me 2 wks Qualifiers: Acute cor pulmonale presence: unspecified
[2021-04-22] MEDS ORDERED: KCL 20 MEQ/100 mL IVPB 20 MEQ/100 ML BAG IV ONE (08:44)
[2021-04-22] MEDS ORDERED: ENOXAPARIN 80 MG/0.8 ML SQ ONE (08:44)
[2021-04-22] MEDS ORDERED: RIVAROXABAN 15 MG TABLET PO SCH (09:00)
[2021-04-22] MEDS ORDERED: ENOXAPARIN 80 MG/0.8 ML SQ SCH (09:00)
--- NOTE | 2021-04-22 12:38 | P.DS ---
Admission Date: 04/21/21 Discharge Date: 04/22/21 Primary Care Provider: [facility] doctor Disposition: ROUTINE DISCHARGE Discharge Condition: GOOD Reason for Admission: PE Consultations: Pulmonology - Dr. Doshi Procedures: CXR (06/21): IMPRESSION: No acute abnormalities displayed CTA (04/19): FINDINGS: Thrombus is present within the distal left main pulmonary artery extending into the left upper and left lower lobe pulmonary arteries. Thrombus is present within right upper lobe, right middle lobe and right lower lobe pulmonary arteries. A thoracic aortic aneurysm is not noted. A pleural effusion is not seen. A pericardial effusion is not seen. A pulmonary infarction is not seen. IMPRESSION: Bilateral pulmonary emboli Problem list Acute hypoxic respiratory failure secondary to bilateral pulmonary embolus Alzheimer's/dementia Hypertension Hyperlipidemia Hypothyroidism Brief History of Present Illness: 76-year-old female with history of Alzheimer's dementia, hypertension, hyperlipidemia, hypothyroidism presents to the emergency department from [facility] for hypoxia. [facility] staff reported patient saturations were persistently around 88%. Patient was brought to the emergency department for evaluation, patient denied any shortness of breath not appear to be any respiratory distress at all but sats were in the low 90s on room air around 92% dropping into the high 80s on occasion. Patient was tolerating nasal cannula well labs were significant for GFR 40 1T bili 1.[address] angio of the chest which demonstrated bilateral pulmonary emboli, thrombus present within the distal left main pulmonary artery extending into the left upper and left lower pulmonary arteries, thrombus is present within the right upper lobe, right middle lobe and right lower lobe pulmonary arteries. Patient blood pressure stable only on nasal cannula and periodically room air no distress noted. Patient given full dose Lovenox in the emergency department, ED provider wishes to admit for further evaluation and management. Hospital Course: Patient tolerated full dose Lovenox, pulmonology was consulted, patient was transitioned to p.o. anticoagulation. She did not require oxygen supplementation and is doing well. Pulmonology evaluated the patient deemed patient was stable for discharge. Findings and plan were reviewed with the patient, her [id number], and her daughter. Patient was discharged back to [facility] on anticoagulation. There is does not seem to be any information to support provoked PE, and this may need to be classified as unprovoked. Xarelto and Eliquis were sent to the pharmacy so the patient can fill whichever is most affordable. Patient does have history of GI bleed in 2017. This was also reviewed with the patient and family, but she is at increased risk of bleeding, recommends monitoring of her stool for signs of bleeding. May need an IVC filter in the future if she does rebleed. Vital Signs/Physical Exam: Temp Pulse Resp BP Pulse Ox 97.7 F 76 17 133/76 100 04/22/21 08:00 04/22/21 08:00 04/22/21 08:00 04/22/21 08:00 04/22/21 08:00 General: Alert, In no apparent distress, Oriented x3 HEENT: Sclerae nonicteric Respiratory: Clear to auscultation bilaterally Cardiovascular: No edema, Regular rate/rhythm, No murmurs Gastrointestinal: Soft and benign, No tenderness Musculoskeletal: No tenderness Integumentary: No rashes Neurological: Normal speech, Normal affect, Dementia Laboratory Data at Discharge: WBC 6.20 K/uL (4.3-10.9) D 04/22/21 05:47 Hgb 10.6 g/dL (12.0-15.0) L 04/22/21 05:47 Hct 33.0 % (36.0-45.0) L 04/22/21 05:47 Plt Count 227 K/uL (152-406) 04/22/21 05:47 PT 12.1 SECONDS (9.5-12.5) 04/21/21 18:50 INR 1.05 04/21/21 18:50 Sodium 143 mmol/L (136-145) 04/22/21 05:47 Potassium 3.4 mmol/L (3.5-5.1) L 04/22/21 05:47 BUN 22 mg/dL (7-18) H 04/22/21 05:47 Creatinine 1.07 mg/dL (0.55-1.3) 04/22/21 05:47 Glucose 100 mg/dL (74-106) 04/22/21 05:47 Magnesium 2.2 mg/dL (1.8-2.4) 04/22/21 05:47 Total Bilirubin 1.2 mg/dL (0.2-1.0) H 04/22/21 05:47 AST 22 U/L (15-37) 04/22/21 05:47 ALT 17 U/L (12-78) 04/22/21 05:47 Alkaline Phosphatase 46 U/L (45-117) 04/22/21 05:47 Triglycerides 104 mg/dL (<150) 04/22/21 05:47 Cholesterol 122 mg/dL (<200) 04/22/21 05:47 HDL Cholesterol 46 mg/dL (40-60) 04/22/21 05:47 Cholesterol/HDL Ratio 2.65 04/22/21 05:47 Home Medications: Verapamil HCl [Verapamil ER] 240 mg PO BID 03/27/15 Atorvastatin Calcium 1 tab PO BEDTIME 03/28/17 Donepezil HCl 1 tab PO DAILY 03/28/17 Levothyroxine Sodium 1 tab PO DAILY 03/28/17 Valsartan 1 tab PO DAILY 03/28/17 Iron/FA/Vit B-Com W/C [Hemocyte Plus] 1 tab PO DAILY #30 tab 04/08/17 Metronidazole 500 mg PO TID #30 tablet 04/08/17 Pantoprazole [Protonix Tab*] 40 mg PO BID #60 tab 04/08/17 levoFLOXacin [Levaquin] 500 mg PO DAILY #10 tab 04/08/17 Apixaban [Eliquis] 5 mg PO BID 30 Days #1 tab.ds.pk 04/22/21 New Medications: Apixaban [Eliquis] 5 mg PO BID 30 Days #1 tab.ds.pk Physician Discharge Instructions: You were found to have pulmonary embolus (blood clot in your lungs). You did not require/qualify for oxygen. You were evaluated by pulmonology, Dr. Doshi, who deemed you stable for discharge home. You are prescribed a blood thinner - (both xarelto and eliquis were sent to your pharmacy to determine which is affordable). Take this medication as directed. You will need to take this for at least several months. Follow up with your PCP in 1-2 weeks. Follow up with Dr. Doshi. You have a history of a GI bleed several years ago. You need to monitor your stools for bleed. Please allow your caregivers to check on your stool at least twice a week. Diet: AHA Activity: Ad mariza Time spent managing pt's care (in minutes): 40
[2021-04-22 12:58] VITALS: BP 119/75; TEMP 96.6; O2SAT 92
--- NOTE | 2021-04-23 08:08 | EKG ---
Test Date: 2021-04-21 Test Time: 18:21:44 Employee Relations Advisor: DAMIEN MEASUREMENT RESULTS: Intervals: Rate: 90 SC: 170 QRSD: 84 QT: 358 QTc: 437 Goessel: P: 74 SC: 170 QRS: -13 T: 38 INTERPRETIVE STATEMENTS: Sinus rhythm with occasional premature ventricular complexes RSR' or QR pattern in V1 suggests right ventricular conduction delay Borderline ECG Compared to ECG 04/10/2021 18:14:25 Ventricular premature complex(es) now present RSR' in V1 or V2 now present T-wave abnormality no longer present Electronically Signed On 04-23-21 08:03:39 [employer]OD [employer]LOOR [employer] by Tang Escalante
== END 2021-04-22 13:50 | disposition home or self-care (01) | DRG 175 ==
LOC: ER 17:37 → ERHOLD 21:55 → 4TH 04-22 11:24
PROVIDERS: ADMIT Hospitalist; ATTEND Hospitalist
DX: I26.99 Other pulmonary embolism without acute cor pulmonale (principal); J96.01 Acute respiratory failure with hypoxia; G30.9 Alzheimer's disease, unspecified; F02.80 Dementia in other diseases classified elsewhere, unspecified severity, without behavioral disturbance, psychotic disturbance, mood disturbance, and anxiety; I10 Essential (primary) hypertension; E78.5 Hyperlipidemia, unspecified; E03.9 Hypothyroidism, unspecified; Z20.822 Contact with and (suspected) exposure to COVID-19
CPT/HCPCS: 36415; 71045; 71275; 80048; 80053; 80061; 80076; 82805; 83735; 83880; 84439; 84443; 85025; 85610; 93005; 96372; 99284; J1650; J3480; Q9967; U0003

== ENCOUNTER 2021-04-23 14:20 | Inpatient (IN) | payer OTHER ==
--- OUTSIDE RECORDS SUMMARY | 2021-04-23 14:25 | XMS REPORT | Continuity of Care Document ---
:1945 Author Organization [facility] t Address [address] [place] [address] Care Team Providers Name Role Phone Ameya [...] Drug Active Univers ALLERGIE Class ity of [facility] Social History Social Habit Start Date Stop Date Quantity Comments Source Exposure to Not sure [facility] SARS-CoV-2 (event) Medica l Branch Tobacco use and 2020-04-19 2020-04-19 Never used [facility] exposure 00:00:00 00:00:00 [facility] Sex Ass[birth year] At [birth year] [facility] 00:00:00 00:00:00 [facility] Smoking Status Start Date Stop Date Source Unknown if ever smoked [facility] Never smoker [facility] Medications Ordered Filled Start Stop Current Ordering Indication Dosage Frequency Signature Comments Components Source Medication Medication Date Date Medication? Clinician (SIG) Name Name GALANTAMINE Yes [id number] TAKE ONE Univers 8 mg tablet 7-20 TABLET BY ity of 00:00: MOUTH 2 [place] 00 TIMES A Medical DAY AT 8AM Branch AND 8PM galantamine Yes [id number] 8mg Take 1 Univers 8 mg tablet 3-03 tablet by ity of 00:00: mouth 2 [place] 00 (two) Medical times Branch daily. galantamine 2020-0 Yes [id number] 8mg Take 1 Univers 8 mg tablet 3-03 tablet by ity of 00:00: mouth (two) Medical times Branch daily. galantamine 2020-0 2021- No [id number] 8mg Take 1 Univers 8 mg tablet 3-03 07-20 tablet by it y of 00:00: 00:00 mouth 00 : (two) Medical times Branch daily. galantamine 2020-1 Yes [id number] 8mg Take 1 Univers 8 mg tablet 0-23 tablet by ity of 00:00: mouth (two) Medical times Branch daily. galantamine 2020-1 Yes [id number] 8mg Take 1 Univers 8 mg tablet 0-23 tablet by ity of 00:00: mouth (two) Medical times Branch daily. galantamine 2020-1 Yes [id number] 8mg Take 1 Univers 8 mg tablet 0-23 tablet by ity of 00:00: mouth ([facility]) Medical times Branch daily. galantamine 2020-1 Yes [id number] 8mg Take 1 Univers 8 mg tablet 0-23 tablet by ity of 00:00: mouth ([facility]) Medical times Branch daily. galantamine 2020-1 Yes [id number] 8mg Take 1 Univers 8 mg tablet 0-23 tablet by ity of 00:00: mouth ([facility]) Medical times Branch daily. galantamine 2020-1 Yes [id number] 8mg Take 1 Univers 8 mg tablet 0-23 tablet by ity of 00:00: mouth ([facility]) Medical times Branch daily. galantamine 2020-1 Yes [id number] 8mg Take 1 Univers 8 mg tablet 0-23 tablet by ity of 00:00: mouth ([facility]) Medical times Branch daily. galantamine 2020-1 Yes [id number] 8mg Take 1 Univers 8 mg tablet 0-23 tablet by ity of 00:00: mouth (two) Medical times Branch daily. galantamine 2020-1 Yes [id number] 8mg Take 1 Univers 8 mg tablet 0-23 tablet by ity of 00:00: mouth (two) Medical times Branch daily. galantamine 2020-1 Yes [id number] 8mg Take 1 Univers 8 mg tablet 0-23 tablet by ity of 00:00: mouth 2 [place] 00 (two) Medical times Branch daily. galantamine 2019-05- No [id number] 8mg Take 1 Univers 8 mg tablet 0-23 03-03 tablet by it y of 00:00: 00:00 mouth 2 [place] 00 :00 (two) Medical times Branch daily. verapamiL 2019-05 Yes Univers 240 mg ER 0-16 ity of tablet 00:00: [place] [facility] verapamiL 2019-05 Yes Univers 240 mg ER 0-16 ity of tablet 00:00: [place] [facility] verapamiL 2019-05 Yes Univers 240 mg ER 0-16 ity of tablet 00:00: [place] [facility] verapamiL 2019-05 Yes Univers 240 mg ER 0-16 ity of tablet 00:00: [place] [facility] verapamiL 2019-05 Yes Univers 240 mg ER 0-16 ity of tablet 00:00: [place] [facility] verapamiL 2019-05 Yes Univers 240 mg ER 0-16 ity of tablet 00:00: [place] [facility] verapamiL 2019-05 Yes Univers 240 mg ER 0-16 ity of tablet 00:00: [place] [facility] verapamiL 2019-05 Yes Univers 240 mg ER 0-16 ity of tablet 00:00: [place] [facility] verapamiL 2019- Yes Univers 240 mg ER 0-16 ity of tablet 00:00: [place] [facility] verapamiL 2019- Yes Univers 240 mg ER 0-16 ity of tablet 00:00: [place] [facility] verapamiL 2019- Yes Univers 240 mg ER 0-16 ity of tablet 00:00: [place] [facility] verapamiL 2019- Yes Univers 240 mg ER 0-16 ity of tablet 00:00: [place] [facility] verapamiL 2019-05 Yes Univers 240 mg ER 0-16 ity of tablet 00:00: [place] [address] Medical Branch verapamiL 2019- Yes Univers 240 mg ER 0-16 ity of tablet 00:00: [place] [facility] memantine 2019-05 Yes 10mg Take 10 mg Un ke 10 mg 0-14 by mouth 2 ity of tablet 00:00: (two) [place] [address] times Medical daily. Branch valsartan 2019-05 Yes 40mg Take 40 mg Un ke 40 mg 0-14 by mouth ity of tablet 00:00: daily. [place] [address] Medical Branch memantine 2020-1 Yes 10mg Take [...] mcg by ity of tablet 00:00: mouth. [place] [facility] levothyroxi 2020-0 Yes 125ug Take 125 U nivers ne 125 mcg 9-14 mcg by ity of tablet 00:00: mouth. [place] [facility] levothyroxi 2020-0 Yes 125ug Take 125 U nivers ne 125 mcg 9-14 mcg by ity of tablet 00:00: mouth. [place] [facility] levothyroxi 2020-0 Yes 125ug Take 125 U nivers ne 125 mcg 9-14 mcg by ity of tablet 00:00: mouth. [place] [facility] levothyroxi 2020-0 Yes 125ug Take 125 U nivers ne 125 mcg 9-14 mcg by ity of tablet 00:00: mouth. [place] [facility] levothyroxi 2020-0 Yes 125ug Take 125 U nivers ne 125 mcg 9-14 mcg by ity of tablet 00:00: mouth. [place] [facility] levothyroxi 2020-0 Yes 125ug Take 125 U nivers ne 125 mcg 9-14 mcg by ity of tablet 00:00: mouth. [place] [facility] levothyroxi 2020-0 Yes 125ug Take 125 U nivers ne 125 mcg 9-14 mcg by ity of tablet 00:00: mouth. [place] [facility] levothyroxi 2020-0 Yes 125ug Take 125 U nivers ne 125 mcg 9-14 mcg by ity of tablet 00:00: mouth. [place] [address] Medical Branch levothyroxi 2020-0 Yes 125ug Take 125 U nivers ne 125 mcg 9-14 mcg by ity of tablet 00:00: mouth. [place] [facility] levothyroxi 2020-0 Yes 125ug Take 125 U nivers ne 125 mcg 9-14 mcg by ity of tablet 00:00: mouth. [place] [address] Medical Branch levothyroxi 2020-0 Yes 125ug Take 125 U nivers ne 125 mcg 9-14 mcg by ity of tablet 00:00: mouth. [place] [address] Medical Branch levothyroxi 2020-0 Yes 125ug Take 125 U nivers ne 125 mcg 9-14 mcg by ity of tablet 00:00: mouth. [place] [address] Medical Branch levothyroxi 2020-0 Yes 125ug Take 125 U nivers ne 125 mcg 9-14 mcg by ity of tablet 00:00: mouth. [place] 00 Medical Branch atorvastati 2020-0 Yes 40mg Take 40 mg Univers n 40 mg 8-30 by mouth ity of tablet 00:00: at [place] [address] bedtime. Medical Branch atorvastati 2019-0 Yes 40mg Take 40 mg Univers n 40 mg 8-30 by mouth ity of tablet 00:00: at [place] [address] bedtime. Medical Branch atorvastati 2019-0 Yes 40mg Take 40 mg Univers n 40 mg 8-30 by mouth ity of tablet 00:00: at [place] [address] bedtime. Medical Branch galantamine 2019-0 Yes 4mg Take 4 mg U nivers 4 mg tablet 8-30 by mouth 2 it y of 00:00: (two) [place] [address] times Medical daily. Branch atorvastati 0 Yes 40mg Take 40 mg Univers n 40 mg 8-30 by mouth ity of tablet 00:00: at [place] [address] bedtime. Medical Branch atorvastati 2019-0 Yes 40mg Take 40 mg Univers n 40 mg 8-30 by mouth ity of tablet 00:00: at [place] [address] bedtime. Medical Branch rivastigmin 0 Yes APPLY 1 Uni vers e 4.6 mg/24 8-30 PATCH ity of hr patch 00:00: DAILY [place] [address] APPLYTO Medical AREA THAT Branch IS CLEAN.DRY. HAIRLESS & FREE REDNESS NEGRO/CUT atorvastati 2019-0 Yes 40mg Take 40 mg Univers n 40 mg 8-30 by mouth ity of tablet 00:00: at [place] [address] bedtime. Medical Branch atorvastati 2020-0 Yes 40mg Take 40 mg Univers n 40 mg 8-30 by mouth ity of tablet 00:00: at [place] [address] bedtime. Medical Branch atorvastati 2020-0 Yes 40mg Take 40 mg Univers n 40 mg 8-30 by mouth ity of tablet 00:00: at [place] [address] bedtime. Medical Branch atorvastati 2020-0 Yes 40mg Take 40 mg Univers n 40 mg 8-30 by mouth ity of tablet 00:00: at [place] [address] bedtime. Medical Branch atorvastati 2020-0 Yes 40mg Take 40 mg Univers n 40 mg 8-30 by mouth ity of tablet 00:00: at [place] 00 bedtime. Medical Branch atorvastati 2020-0 Yes 40mg Take 40 mg Univers n 40 mg 8-30 by mouth ity of tablet 00:00: at [place] [address] bedtime. Medical Branch atorvastati 2020-0 Yes 40mg Take 40 mg Univers n 40 mg 8-30 by mouth ity of tablet 00:00: at [place] [address] bedtime. Medical Branch atorvastati 2020-0 Yes 40mg Take 40 mg Univers n 40 mg 8-30 by mouth ity of tablet 00:00: at [place] [address] bedtime. Medical Branch atorvastati 2020-0 Yes 40mg Take 40 mg Univers n 40 mg 8-30 by mouth ity of tablet 00:00: at [place] [address] bedtime. Medical Branch rivastigmin 2020-0 2020- No APPLY 1 Un ke e 4.6 mg/24 8-30 12-15 PATCH ity of hr patch 00:00: 00:00 DAILY [place] 00 :00 APPLYTO Medical AREA THAT Branch [...] ity of hr patch 00:00: 00:00 DAILY [place] 00 :00 APPLYTO Medical AREA THAT Branch IS CLEAN.DRY. HAIRLESS & FREE REDNESS NEGRO/CUT Immunizations Ordered Filled Immunization Date Status Comments Sour e Immunization Name Name SARS-COV-2 COVID-19 2020-08-17 Completed Unive rsity of PFIZER VACCINE 00:00:00 [facility] SARS-COV-2 COVID-19 2020-08-17 Completed Unive rsity of PFIZER VACCINE 00:00:00 [facility] SARS-COV-2 COVID-19 2020-07-27 Completed Unive rsity of PFIZER VACCINE 00:00:00 [facility] SARS-COV-2 COVID-19 2020-07-27 Completed Unive rsity of PFIZER VACCINE 00:00:00 [facility] SARS-COV-2 COVID-19 2020-07-27 Completed Unive rsity of PFIZER VACCINE 00:00:00 [facility] Vital Signs Vital Name Observation Time Observation Value Comments Source Systolic blood 2020-04-19 21:20:00 141 mm[Hg] [facility] [place] pressure Medical Branch Diastolic blood 2020-04-19 21:20:00 79 mm[Hg] Unive rs[facility] of [place] pressure Medical Branch Heart rate 2020-04-19 21:20:00 69 /min [facility] Medical Branch Oxygen saturation 2020-04-19 21:20:00 97 /min [facility] in Arterial blood Medical Br anch by Pulse oximetry Procedures Procedure Date / Time Performing Clinician Source Performed AUTHORIZATION FOR 2020-05-09 06:01:00 Doctor Unassigned, No [facility] RELEASE OF PHI Name Medical Branch EXTERNAL PROVIDER 2020-04-10 06:01:00 Doctor Unassigned, No [facility] Name Medical Branch ASSIGNMENT OF BENEFITS 2020-03-22 18:48:04 Doctor Unassigned, No [facility] Name Medical Branch Encounters Start End Encounter Admission Attending Care Care Encounter Source Date/Time Date/Time Type Type Clinicians Facility Department ID 2020-12-17 2020-12-17 RefAMANDA Nichole 1.2.840.114 [id number] Univers 00:00:00 00:00:00 Ekaterina Barnes [id number] itWaqas [id number] [facility] Professio [phone] [place]ical [facility]2 [facility] 2020-08-27 2020-08-27 Telephone [facility] 1.2.840.114 [id number] Univers 00:00:00 00:00:00 Ekaterina Barnes [id number] ity [id number] [phone] [address] 2020-08-17 2020-08-17 Outpatient [facility] [id number] Univers 10:40:00 10:40:00 ity of [facility] 2020-07-29 2020-07-29 Refill [facility] 1.2.840.114 [id number] Univers 00:00:00 00:00:00 Ekaterina Barnes [id number] [id number] [phone] [address] 2020-07-27 2020-07-27 Outpatient [facility] [id number] Univers 11:10:00 11:10:00 ity of [facility] 2020-07-19 2020-07-19 Telephone [facility] [id number] Univers 00:00:00 00:00:00 Ekaterina Barnes [id number] [id number] [phone] [address] 2020-05-09 2020-05-09 Orders Doctor MILLER 1.2.840.114 [id number] Univers 00:00:00 00:00:00 Only Unassigned, LYLY [id number] ity of [place] [facility] [id number] Jamel as [phone] [address] 2020-04-22 2020-04-22 Telephone [facility] 1.2.840.114 [id number] Univers 00:00:00 00:00:00 Ekaterina Barnes [id number] [id number] [phone] [address] 2020-04-19 2020-04-19 Office Happy Jack, [facility] 1.2.840.114 [id number] Univers 14:41:49 15:51:48 Visit Ekaterina Barnes [id number] [id number] [phone] [place] d[place] n[place] 2 [facility] 2020-04-19 2020-04-19 Outpatient R AMEYA EKATERINA [facility] [id number] Univers 14:40:00 14:40:00 EKATERINA PETE [id number] ity [facility] 2020-04-19 2020-04-19 Outpatient R AMEYA EKATERINA [facility] [id number] Univers 14:40:00 14:40:00 [facility] 2020-04-10 2020-04-10 Orders Doctor ANGELA 1.2.840.114 [id number] 00:00:00 00:00:00 Only Unassigned, LYLY [id number] [place] [facility] [phone] [facility] 2020-04-10 2020-04-10 Orders Doctor ANGELA 1.2.840.114 [id number] Univers 00:00:00 00:00:00 Only Unassigned, LYLY [id number] ity of [place] [facility] [id number] Jamel as [phone] [address] 2020-04-02 2020-04-02 Telephone Ameya, [facility] 1.2.840.114 [id number] 00:00:00 00:00:00 Ekaterina Barnes [id number] [place] [id number] Professio [phone] [address] 2020-04-02 2020-04-02 Telephone Ameya [facility] 1.2.840.114 [id number] [facility] 00:00:00 00:00:00 Ekaterina Barnes [id number] [id number] [phone] [place] n[place] 092 [facility] 2020-03-22 2020-03-22 Office Ameya, [facility] 1.2.840.114 [id number] 13:50:01 16:12:48 Visit Ekaterina Francis [place] [id number] [place] [id number] Professio [phone] [address] 2020-03-22 2020-03-22 Office Ameya [facility] 1.2.840.114 [id number] [facility] 13:50:01 16:12:48 Visit Ekaterina Barnes [id number] [id number] [phone] [place] dical [address] 2020-03-22 2020-03-22 Outpatient R EKATERINA PETE [facility] [id number] Univers 13:40:00 13:40:00 EKATERINA PETE itmargareth of [facility] 2020-03-22 2020-03-22 Orders Doctor ANGELA 1.2.840.114 [id number] Univers 00:00:00 00:00:00 Only Unassigned, LYLY [id number] ity of [place] [facility] [id number] Jamel as [phone] [place] [address] Branch Results This patient has no known results.
--- NOTE | 2021-04-23 15:23 | RAD REPORT ---
EXAM DESCRIPTION: RAD - Chest Single View - 04/23/2021 3:17 pm CLINICAL HISTORY: hypotension Chest pain. FINDINGS: Portable technique limits examination quality. The lungs are grossly clear. The heart is mildly enlarged. No displaced fractures. IMPRESSION: No acute intrathoracic process suspected.
--- NOTE | 2021-04-23 16:12 | RAD REPORT ---
EXAM DESCRIPTION: US - Extrem Venous W Compress [place] - 04/23/2021 4:02 pm CLINICAL HISTORY: SWELLING Bilateral leg edema and swelling. COMPARISON: Extremity Venous [facility] dated 04/23/2020 TECHNIQUE: Real-time sonographic interrogation of the left and right lower extremity deep venous sys tems was performed. FINDINGS: Normal compressibility, flow augmentation, phasic flow and spontaneous flow is identified in both the left and right lower extremity deep venous systems. IMPRESSION: No sonographic evidence of left or right lower extremity deep venous thrombosis.
--- NOTE | 2021-04-23 16:13 | RAD REPORT ---
EXAM DESCRIPTION: CT - Head Brain Wo Cont - 04/23/2021 4:02 pm CLINICAL HISTORY: ams Headache, drowsiness COMPARISON: Head Brain Wo Cont dated 04/10/2021 TECHNIQUE: All CT scans are performed using dose optimization technique as appropriate and may inclu de automated exposure control or mA/KV adjustment according to patient size. FINDINGS: No intracranial hemorrhage, hydrocephalus or extra-axial fluid collection.Advanced general ized brain atrophy is present with advanced periventricular and deep white matter chronic microvascul ar ischemic changes.No areas of brain edema or evidence of midline shift. The paranasal sinuses and mastoids are clear. The calvarium is intact. IMPRESSION: No acute intracranial abnormality.
[2021-04-23 17:16] LABS: Absolute Lymphocytes (CBC) 1.5 K/uL (0.7-4.9); Basophils % 0.4 % (0-1.3); Hematocrit 31.9 % (36.0-45.0); MPV 8.4 fL (7.6-11.3); Protime INR 1.57; RBC Red Blood Cell Count 3.68 M/uL (3.86-4.86)
[2021-04-23 17:21] LABS: Albumin 3.2 g/dL (3.4-5.0); Bilirubin Direct 0.2 mg/dL (0-0.2); Bilirubin Total 1.1 mg/dL (0.2-1.0); Potassium 3.2 mmol/L (3.5-5.1); Protein, Total 7.4 g/dL (6.4-8.2); Troponin (Emerg Dept Use Only) 0.29 ng/mL (0.0-0.045)
[2021-04-23] MEDS ORDERED: ALTEPLASE 100 MG/100 ML VIAL (For stroke) IV ONE (19:43)
[2021-04-23] MEDS ORDERED: LORazepam 2 MG/ML VIAL ONE ×2 (19:53→22:29)
--- NOTE | 2021-04-23 19:57 | ER ---
Nurse's Notes [facility] Name: Cony Bertrand Age: 76 yrs Sex: Female : 1945 Arrival Date: 04/23/2021 Time: 14:27 Bed 20 Private MD: Diagnosis: Other pulmonary embolism with acute cor pulmonale Presentation: 04/23 14:28 Chief complaint: EMS states: Picked up from [facility] for altered mental status, ll1 weakness to both lower ext., and low BP. Recently started on Eliquis for blood clots to the lung. Fingerstick 103, SPO2 94-100% RA, initial BP 92/56. Denies fever/pain. Coronavirus screen: Vaccine status: Patient reports being unvaccinated. Client denies travel out of the [place] in the last 14 days. At this time, the client does not indicate any symptoms associated with coronavirus-19. Ebola Screen: Patient denies travel to an Ebola-affected area in the 21 days before illness onset. Initial Sepsis Screen: Does the patient meet any 2 criteria? No. Patient's initial sepsis screen is negative. Does the patient have a suspected source of infection? No. Patient's initial sepsis screen is negative. Risk Assessment: Do you want to hurt yourself or someone else? Patient reports no desire to harm self or others. Onset of symptoms was April 23, 2021. 14:28 Method Of Arrival: EMS: [facility] 14:28 Acuity: VIOLETTE 3 ll1 Historical: - Allergies: 14:34 unknown medication; ll1 - PMHx: 14:34 Alzheimer's disease; Dementia; High Cholesterol; Hypertension; Anxiety; Hypothyroidism; ll1 - Immunization history:: Client reports having NOT received the Covid vaccine. - Social history:: Smoking status: Patient denies any tobacco usage or history of. Screenin:12 Abuse screen: Denies threats or abuse. Denies injuries from another. Nutritional sl2 screening: No deficits noted. Tuberculosis screening: No symptoms or risk factors identified. Fall Risk No fall in past 12 months (0 pts). No secondary diagnosis (0 pts). IV access (20 points). Ambulatory Aid- Crutches/Cane/Walker (15 pts). Gait- Weak (10 pts.). Mental Status- Overestimates/Forgets Limitations (15 pts.). Total Lew Fall Scale indicates High Risk Score (45 or more points). Fall prevention measures have been instituted. Side Rails Up X 2 Placed Close to Nursing Station Frequent Obs/Assessments Occuring Family Present and informed to notify staff if the need to leave the bedside. Assessment: 15:21 General: Appears uncomfortable, unkempt, well developed, Behavior is cooperative, sl2 anxious. Pain: Denies pain. Neuro: Level of Consciousness is awake, alert, confused, Oriented to person, Research Neuropsychologist are weak on right weak on left Moves all extremities. Weakness Gait is unable to assess . Respiratory: No deficits noted. Reports. Respiratory: No deficits noted. Reports. GI: No deficits noted. No signs and/or symptoms were reported involving the gastrointestinal system. : No deficits noted. No signs and/or symptoms were reported regarding the genitourinary system. Musculoskeletal: Reports weakness in generalized. 17:10 Reassessment: Multiple attempts made to collect urine specimen via straight sl2 catheterization - patient is violent is kicking, punching and scratching staff. Patient snatched # 22 gauge IV access that was placed to her left hand. Patient repeatedly removes monitoring leads for EKG, blood pressure and oxygen saturation as well. Patient held on to this RN's wrist and attempted to puncture skin with her nails - patient refused to release senior ui ux developer from this RN's wrist, family member had to enter room and cajole patient into releasing her senior ui ux developer. Patient refuses to cooperate with process for urine specimen collection, Slim FUENTES notified of same - verbal orders received to hold urine collection at this time. 19:45 Reassessment: Up \\T\\ ambulatory \\T\\ end of stretcher; dioriented; pulled monitor lead wires sl 2 off; assisted back onto stretcher; monitors reapplied; SR's up x2; stretcher low position; encouraged family member to remain in room for safety with v/u; non skid socks applied to feet; ALFREDO Santo notified with new order recieved. General: Appears in no apparent distress. Behavior is calm, Disoriented/confused.. Pain: Denies pain. Neuro: Level of Consciousness is awake, confused, Oriented to person. Cardiovascular: Rhythm is sinus rhythm. Respiratory: No deficits noted. Airway is patent Respiratory effort is even, unlabored, Respiratory pattern is regular, symmetrical. GI: No signs and/or symptoms were reported involving the gastrointestinal system. : No signs and/or symptoms were reported regarding the genitourinary system. EENT: No signs and/or symptoms were reported regarding the EENT system. Derm: No deficits noted. Skin is intact. Musculoskeletal: No deficits noted. Capillary refill < 3 seconds, Range of motion: intact in all extremities. 19:50 General: Unable to start IV with ALFREDO Santo \\T\\ Yamile Gallegos RN notified of need to cc4 use ultrasound to start IV \\T\\ of pts agitation with Yamile Gallegos RN reports will attempt IV after pt calms down; new order recieved.. 20:00 Reassessment: No changes from previously documented assessment. Ativan 0.5 mg given IM sl2 right vastus lateralis, kaleb. well; family member \\T\\ bedside. 20:30 Reassessment: Patient appears in no apparent distress at this time. Dozing cc4 intermittently; calmer; Juan Ramon Gallegos RN notiifed. 21:30 Reassessment: Awakened from sleep with Juan Ramon Gallegos RN in \\T\\ bedside using ultrasound \\T\\ cc 4 starting IV right upper inner FA with # 20 g diffusics with saline flush; 2nd # 20 g inserted left AC using ultrasound per Juan Ramon Gallegos RN followed with saline flush, kaleb. fairly well; [id number] \\T\\ bedside. 21:54 Reassessment: Consent for tPA signed per [id number] with verbal consent from cc4 daughter via telephone; h/o Alzheimer's; disoriented/confused; tPA 100 mg hung to saline lock right AC \\T\\ infusing \\T\\ 50ml/hr/pump with no s/sx's of infiltration or bleeding; see tPA vital sign \\T\\ neurological flowsheet. 22:15 General: Behavior is agitated, Hitting \\T\\ striking staff when applying adult brief; cc4 Ativan 1 mg give slow IVP as ordered via left AC saline lock; tPA con't to infuse right upper FA with no s/sx's of bleeding; VSS; no changes in neuro status.. 23:15 Reassessment: Remains combative intermittently, striking out \\T\\ scratching staff with cc4 ALFREDO Vinson notified with Haldol 2 mg given slow IVP as ordered; tPA con't to infuse with no difficulty; VSS; no changes in neuro status (see flowsheet). 23:54 Reassessment: Patient appears in no apparent distress at this time. Dozing; tPA cc4 infusion complete followed with NS flush 50ml, kaleb. well (see tPA flowsheet) VSS; arouses easily \\T\\ more complaint with neuro checks. 04/24 01:24 Reassessment: Snoring noted with period of apnea; O2 applied \\T\\ 4L/NBP; ALFREDO Santo in cc4 \\T\\ bedside stimulating patient; arousing \\T\\ striking out and attempting to scratch staff; see tPA flowsheet fo vitals. 02:00 Reassessment: Continues to have intermittent snoring with decrease in resps to 8-12; cc4 ALFREDO Vinson notified with ok to use CPAP if needed; arouse to verbal stimuli; VSS. 03:00 Reassessment: Patient appears in no apparent distress at this time. Transferred to ICU cc4 hold with report given to Aki Hernández RN;. Vital Signs: 04/23 14:28 BP 108 / 52; Pulse 55; Resp 16; Temp 98.2; Pulse Ox 99% ; Weight 66.22 kg; Height 5 ft. ll1 2 in. (157.48 cm); Pain 0/10; 15:00 BP 115 / 61; Pulse 58; Resp 18; Temp 98.2(O); Pulse Ox 100% on R/A; sl2 16:30 BP 110 / 61; Pulse 57; Resp 18; Pulse Ox 96% ; sl2 17:00 BP 124 / 60; Pulse 55; Resp 18; Temp 98.4(O); Pulse Ox 96% on R/A; sl2 18:00 BP 153 / 70; Pulse 61; Resp 20; Pulse Ox 95% on R/A; sl2 19:46 BP 117 / 64; Pulse 66; Resp 16 S; Temp 98.3(O); Pulse Ox 96% on R/A; sl2 20:00 BP 136 / 62; Pulse 68; Resp 22 S; Pulse Ox 98% on R/A; cc4 20:30 BP 102 / 83; Pulse 75; Resp 20; Pulse Ox 94% on R/A; cc4 21:00 BP 106 / 50; Pulse 56; Resp 20 S; Pulse Ox 96% on R/A; cc4 21:30 BP 102 / 47; Pulse 55; Resp 20; Pulse Ox 98% ; cc4 21:54 BP 120 / 65; Pulse 57; Resp 18 S; Pulse Ox 95% on R/A; cc4 14:28 Body Mass Index 26.70 (66.22 kg, 157.48 cm) 1 ED Course: 14:27 Patient arrived in ED. 1 14:27 Fernando Dueñas PA is PHCP. [facility] 14:27 Alan King MD is Attending Physician. [facility] 14:28 Arm band placed on Patient placed in an exam room, on a stretcher. 1 14:33 Triage completed. 1 15:12 Patient has correct armband on for positive identification. Bed in low position. Call [facility] light in reach. Side rails up X2. Adult w/ patient. Warm blanket given. advanced manufacturing technician on. Pulse ox on. NIBP on. 15:13 COVID swab sent to lab. Missed attempt(s): 20 gauge in right antecubital area. 5 15:13 SARS-COV-2 RT PCR (Document "Date of Onset" if Symptomatic) Sent. 5 15:14 EKG done, by ED staff, reviewed by Fernando FUENTES. 5 15:17 Angela Doss, RN is Primary Nurse. sl2 15:17 XRAY Chest (1 view) In Process Unspecified. EDMS 15:41 Patient moved back from ultrasound. sl2 15:41 Inserted saline lock: 22 gauge in left hand, using aseptic technique. sl2 16:02 CT Head Brain wo Cont In Process Unspecified. EDMS 16:02 US Extremity Venous W Compression [place] In Process Unspecified. EDMS 17:12 Served as a elevator supervisor during rectal exam. 2 17:20 Troponin (emerg Dept Use Only) Sent. 5 17:20 PT-INR Sent. 5 17:20 NT PRO-BNP Sent. 5 17:20 Magnesium Sent. 5 17:20 LFT's Sent. 5 17:20 CBC with Diff Sent. 5 17:20 Basic Metabolic Panel Sent. mh5 17:20 Basic Metabolic Panel Sent. mh5 17:21 CBC with Automated Diff Sent. 5 17:21 Procalcitonin Sent. [facility] 18:24 PHCP role handed off by Fernando Dueñas PA 8 18:24 Wesley Walls PA is PHCP. jr8 18:34 IV discontinued, intact, bleeding controlled, No redness/swelling at site. Pressure sl2 dressing applied, Patient removed # 22 gauge peripheral IV access to from left hand. 19:55 Julián King MD is Hospitalizing Provider. jr8 20:00 Inserted saline lock: 20 gauge in left upper arm, using aseptic technique. bb 21:45 Inserted saline lock: 20 gauge in right forearm, using aseptic technique. bb Administered Medications: 20:00 Drug: Ativan (LORazepam) 0.5 mg Route: IM; Site: right vastus lateralis; sl2 20:01 CANCELLED (Order changed per ): Ativan (LORazepam) 0.5 mg IVP once sl2 22:15 Drug: Ativan (LORazepam) 1 mg Route: IVP; Site: left antecubital; cc4 23:15 Drug: Haldol 2mg IVP 2 mg Route: IV; Rate: calculated rate; Site: left antecubital; cc4 Outcome: 19:56 Decision to Hospitalize by Provider. [facility] 04/24 03:58 Patient left the ED. bb Signatures: Dispatcher [employer] EDMS Fernando Dueñas PA PA jmm Ballard, Brenda, RN RN Wesley Bejarano PA PA 8 Stephanie Rodriguez [facility] Truman Orozco RN RN 1 Raisa Celeste RN RN cc4 Angela Doss, SINA RN sl2 Corrections: (The following items were deleted from the chart) 04:35 04/23 20:00 BP 122 / 72; Pulse 104bpm; Resp 22bpm; Spontaneous; Pulse Ox 98% RA; Temp cc4 98.0F Oral; cc4 04/24 04:35 04/23 20:30 BP 104 / 65; Pulse 100bpm; Resp 22bpm; Spontaneous; Pulse Ox 98% RA; cc4 cc4 04/24 04:35 04/23 20:45 BP 100 / 88; Pulse 94bpm; Resp 20bpm; Spontaneous; Pulse Ox 99% RA; cc4 cc4 04/24 04:35 04/23 21:33 BP 117 / 72; Pulse 98bpm; Resp 18bpm; Spontaneous; Pulse Ox 97% RA; cc4 cc4 04/24 05:53 04/23 19:45 Musculoskeletal: No deficits noted. Capillary refill < 3 seconds, Range of cc4 motion: intact in all extremities, sl2
--- NOTE | 2021-04-23 19:57 | EDPHYS ---
Physician Documentation [facility] Name: Cony Bertrand Age: 76 yrs Sex: Female : 1945 Arrival Date: 04/23/2021 Time: 14:27 Bed 20 Private MD: ED Physician Alan King HPI: 04/23 18:13 This 76 yrs old Unknown Female presents to ER via EMS with complaints of General jmm Weakness, Altered Mental Status. 18:13 The patient has experienced near-syncope. This is a 76-year-old female with history of jmm Alzheimer's disease, dementia, hyperlipidemia, hypertension that presents emerged department with abnormal blood pressure and oxygen saturation. Patient was recently discharged from inpatient due to pulmonary embolism. Patient is currently taking Eliquis. retirement/assisted care noticed the patient was acting altered. Patient's systolic blood pressure was below 90 and oxygen saturation was below 90 as well. Patient has no complaints of chest pain but does have significant dementia. Historical: - Allergies: 14:34 unknown medication; ll1 - PMHx: 14:34 Alzheimer's disease; Dementia; High Cholesterol; Hypertension; Anxiety; Hypothyroidism; ll1 - Immunization history:: Client reports having NOT received the Covid vaccine. - Social history:: Smoking status: Patient denies any tobacco usage or history of. ROS: 18:13 Unable to obtain ROS due to baseline dementia. jmm Exam: 18:13 Head/Face: atraumatic. Eyes: EOMI, no conjunctival erythema appreciated ENT: Moist jmm Mucus Membranes Neck: Trachea midline, Supple Chest/axilla: Normal chest wall appearance and motion. Cardiovascular: Regular rate and rhythm. No edema appreciated Respiratory: Normal respirations, no respiratory distress appreciated Abdomen/GI: Non distended, soft Back: Normal ROM Skin: General appearance color normal 18:13 Constitutional: The patient appears alert, awake, restless, uncomfortable. 18:13 Musculoskeletal/extremity: ROM: intact in all extremities. 18:13 Skin: Appearance: Color: normal in color, Temperature: normal temperature, Moisture: normal moisture, abscess. 18:13 Neuro: Orientation: is normal, Mentation: is normal, Memory: is normal. 18:13 Psych: Behavior/mood is cooperative, anxious. Vital Signs: 14:28 BP 108 / 52; Pulse 55; Resp 16; Temp 98.2; Pulse Ox 99% ; Weight 66.22 kg; Height 5 ft. ll1 2 in. (157.48 cm); Pain 0/10; 15:00 BP 115 / 61; Pulse 58; Resp 18; Temp 98.2(O); Pulse Ox 100% on R/A; sl2 16:30 BP 110 / 61; Pulse 57; Resp 18; Pulse Ox 96% ; sl2 17:00 BP 124 / 60; Pulse 55; Resp 18; Temp 98.4(O); Pulse Ox 96% on R/A; sl2 18:00 BP 153 / 70; Pulse 61; Resp 20; Pulse Ox 95% on R/A; sl2 19:46 BP 117 / 64; Pulse 66; Resp 16 S; Temp 98.3(O); Pulse Ox 96% on R/A; sl2 20:00 BP 136 / 62; Pulse 68; Resp 22 S; Pulse Ox 98% on R/A; cc4 20:30 BP 102 / 83; Pulse 75; Resp 20; Pulse Ox 94% on R/A; cc4 21:00 BP 106 / 50; Pulse 56; Resp 20 S; Pulse Ox 96% on R/A; cc4 21:30 BP 102 / 47; Pulse 55; Resp 20; Pulse Ox 98% ; cc4 21:54 BP 120 / 65; Pulse 57; Resp 18 S; Pulse Ox 95% on R/A; cc4 14:28 Body Mass Index 26.70 (66.22 kg, 157.48 cm) ll1 MDM: 14:47 Patient medically screened. [facility] 18:16 Transition of care: After a detail discussion of the patient's case, care is [facility] transferred to Wesley FUENTES. ED course: I have discussed the patient with Carlos Pike whom recommended transfer due to decrease services for cardiology during .. 19:56 Data reviewed: vital signs, nurses notes, lab test result(s), EKG, radiologic studies, jr8 plain films. Data interpreted: Pulse oximetry: on room air is 95 %. Interpretation: normal. Counseling: I had a detailed discussion with the patient and/or guardian regarding: the historical points, exam findings, and any diagnostic results supporting the discharge/admit diagnosis, lab results, radiology results, the need for further work-up and treatment in the hospital. ED course: Spoke with Dr. Doshi about patient. We are in agreement that patient needs TPA and will give 100 mg over [address] in ICU overnight.. 04/23 14:48 Order name: Basic Metabolic Panel [facility] 04/23 14:48 Order name: CBC with Diff [facility] 04/23 14:48 Order name: LFT's; Complete Time: 17:47 [facility] 04/23 14:48 Order name: Magnesium; Complete Time: 17:47 [facility] 04/23 14:48 Order name: NT PRO-BNP; Complete Time: 17:47 [facility] 04/23 14:48 Order name: PT-INR; Complete Time: 17:56 [facility] 04/23 14:48 Order name: Troponin (emerg Dept Use Only); Complete Time: 17:47 [facility] 04/23 14:49 Order name: Basic Metabolic Panel; Complete Time: 17:47 [facility] 04/23 14:49 Order name: CBC with Automated Diff; Complete Time: 17:56 [facility] 04/23 14:49 Order name: Procalcitonin; Complete Time: 17:47 [facility] 04/23 14:49 Order name: Lactate; Complete Time: 17:47 [facility] 04/23 14:49 Order name: Blood Culture Adult (2) [facility] 04/23 14:49 Order name: SARS-COV-2 RT PCR (Document "Date of Onset" if Symptomatic); Complete Time: [facility] 16:39 04/23 17:06 Order name: [place]; Complete Time: 20:28 [facility] 04/23 14:48 Order name: XRAY Chest (1 view); Complete Time: 15:29 [facility] 04/23 14:48 Order name: EKG; Complete Time: 14:49 [facility] 04/23 14:48 Order name: Cardiac monitoring; Complete Time: 17:20 [facility] 04/23 14:48 Order name: EKG - Nurse/Tech; Complete Time: 15:14 [facility] 04/23 14:48 Order name: IV Saline Lock; Complete Time: 17:20 [facility] 04/23 14:48 Order name: Labs collected and sent; Complete Time: 17:20 [facility] 04/23 14:48 Order name: O2 Per Protocol; Complete Time: 17:20 [facility] 04/23 14:48 Order name: CT Head Brain wo Cont; Complete Time: 16:17 [facility] 04/23 14:56 Order name: US Extremity Venous W Compression [place]; Complete Time: 16:17 [facility] 04/23 21:06 Order name: CONS Physician Consult; Complete Time: 22:01 [facility] 04/24 03:17 Order name: Troponin I [facility] 04/24 03:28 Order name: CBC with Automated Diff [facility] 04/23 14:48 Order name: O2 Sat Monitoring; Complete Time: 17:20 [facility] 04/23 15:35 Order name: Urine Dipstick-Ancillary (obtain specimen) [facility] Administered Medications: 20:00 Drug: Ativan (LORazepam) 0.5 mg Route: IM; Site: right vastus lateralis; sl2 20:01 CANCELLED (Order changed per ): Ativan (LORazepam) 0.5 mg IVP once sl2 22:15 Drug: Ativan (LORazepam) 1 mg Route: IVP; Site: left antecubital; cc4 23:15 Drug: Haldol 2mg IVP 2 mg Route: IV; Rate: calculated rate; Site: left antecubital; cc4 Disposition Summary: 04/23/21 19:56 Hospitalization Ordered Hospitalization Status: Inpatient Admission jr8 Provider: Julián King Condition: Stable jr Problem: new jr8 Symptoms: have improved jr8 Bed/Room Type: [facility] Location: [facility] ER HOLD(04/23/21 21:30) eb Room Assignment: ERHOLD-(04/23/21 21:30) eb1 Diagnosis - Other pulmonary embolism with acute cor pulmonale [facility] Forms: - Medication Reconciliation Form jr8 - SBAR form jr8 Addendum: 04/28/2021 19:05 Co-signature as Attending Physician, Alan King MD I agree with the assessment and r n plan of care. Attestation: The patient's history, exam findings, diagnostics, and a summary of any interventions or procedures was reviewed in detail with Wesley FUENTES. Signatures: Dispatcher [employer] [facility] Fernando Dueñas PA PA jmm Nieto, Roman, MD MD rn Roszak, Josh, PA PA jr8 Rosemarie Weathers RN RN eb1 Truman Orozco RN RN 1 Raisa Celeste RN RN cc4 Angela Doss RN RN sl2 Corrections: (The following items were deleted from the chart) 04/23 20:01 19:16 Ativan (LORazepam) 0.5 mg IVP once ordered. jr8 sl2 : 19:56 Intensive Care Unit jr8 eb1 19:56 jr8 eb1
[2021-04-23] MEDS ORDERED: NA CHLORIDE 0.9% 1,000 ML IV SCH (20:00)
[2021-04-23] MEDS ORDERED: NA CHLORIDE 0.9% 1,000 ML ONE (21:30)
[2021-04-23] MEDS ORDERED: ALTEPLASE 100 ML IV ONE (21:45)
[2021-04-23] MEDS ORDERED: HALOPERIDOL LACT 5 MG/ML INJ ONE (23:04)
--- NOTE | 2021-04-23 23:12 | P.HP ---
Certification for Inpatient Patient admitted to: Inpatient With expected LOS: <2 Midnights Patient will require the following post-hospital care: None Practitioner: I am a practitioner with admitting privileges, knowledge of patient current condition, hospital course, and medical plan of care. Services: Services provided to patient in accordance with Admission requirements found in Title 42 Section 412.3 of the Code of Federal Regulations Patient History Date of Service: 04/23/21 Reason for admission: PE History of Present Illness: Ms. Bertrand is a 76 yo F with dementia, HTN, hypothyroidism, HLD, and recent diagnosis of PE on eliquis discharged from hospital yesterday who was brought in from assisted living home for AMS, hypotension and hypoxia. Also has had general weakness and a near syncopal event at [facility]. She is more confused than usual. Unknown if patient received first dose of eliquis last night or this morning. K 3.2 BUN 24 GFR 45 trop 0.29 BNP 3035. Given newly elevated troponin, elevated BNP, and right heart strain on EKG, concern that PE is causing today's symptoms. After discussion with pulmonology, ED administered tPA. Patient admitted to ICU for further monitoring. CXR IMPRESSION: No acute intrathoracic process suspected. CT HEAD IMPRESSION: No acute intracranial abnormality. VENOUS US IMPRESSION: No sonographic evidence of left or right lower extremity deep venous thrombosis. Allergies aspartame Allergy (Verified 03/28/17 21:03) Itching unknown medication Allergy (Uncoded 03/31/17 15:17) Unknown Home Medications: Verapamil HCl [Verapamil ER] 240 mg PO BID 03/27/15 Atorvastatin Calcium 1 tab PO BEDTIME 03/28/17 Donepezil HCl 1 tab PO DAILY 03/28/17 Levothyroxine Sodium 1 tab PO DAILY 03/28/17 Valsartan 1 tab PO DAILY 03/28/17 Iron/FA/Vit B-Com W/C [Hemocyte Plus] 1 tab PO DAILY #30 tab 04/08/17 Metronidazole 500 mg PO TID #30 tablet 04/08/17 Pantoprazole [Protonix Tab*] 40 mg PO BID #60 tab 04/08/17 levoFLOXacin [Levaquin] 500 mg PO DAILY #10 tab 04/08/17 Apixaban [Eliquis] 5 mg PO BID 30 Days #1 tab.ds.pk 04/22/21 - Past Medical/Surgical History Diabetic: No -: HTN -: Hypothyroidism -: Alzheimer's/dementia -: Hyperlipidemia -: Tonsilectomy Psychosocial/ Personal History: Patient is [facility] resident - Family History Father Notes: pt stated "none that I know of" Mother -: Cancer, Other (see notes) Notes: alzeimers. - Social History Smoking Status: Unknown if ever smoked Alcohol use: No CD- Drugs: No Caffeine use: No Place of Residence: Longterm Review of Systems is unable to be obtained Physical Examination - Physical Exam General: Oriented x1, Demented HEENT: Atraumatic, PERRLA, Mucous membr. moist/pink, EOMI, Sclerae nonicteric Neck: Supple, 2+ carotid pulse no bruit, No LAD, Without JVD or thyroid abnormality Respiratory: Clear to auscultation bilaterally, Normal air movement Cardiovascular: Regular rate/rhythm, Normal S1 S2 Gastrointestinal: Normal bowel sounds, No tenderness Musculoskeletal: No tenderness Integumentary: No rashes Neurological: Normal strength at 5/5 x4 extr, Normal tone, Sensation intact, Abnormal speech, Abnormal affect, Dementia Lymphatics: No axilla or inguinal lymphadenopathy - Studies Laboratory Data (last 24 hrs) 04/23/21 16:49: PT 18.1 H, INR 1.57 04/23/21 16:49: WBC 5.90, Hgb 10.4 L, Hct 31.9 L, Plt Count 235 04/23/21 16:49: Sodium 142, Potassium 3.2 L, BUN 24 H, Creatinine 1.17, Glucose 90, Magnesium 2.0, Total Bilirubin 1.1 H, AST 24, ALT 14, Alkaline Phosphatase 51 Microbiology Data (last 24 hrs): 04/23/21 17:06 Stool Occult Blood - Final Assessment and Plan - Problems (Diagnosis) (1) Hypoxia Current Visit: Yes Status: Acute (2) Elevated troponin Current Visit: Yes Status: Acute (3) Hypotension Current Visit: No Status: Acute Qualifiers: Hypotension type: unspecified hypotension type Qualified Code(s): I95.9 - Hypotension, unspecified (4) Pre-syncope Current Visit: No Status: Acute (5) Pulmonary embolism Current Visit: No Status: Acute Qualifiers: Pulmonary embolism type: unspecified Chronicity: acute Acute cor pulmonale presence: unspecified Qualified Code(s): I26.99 - Other pulmonary embolism without acute cor pulmonale (6) HTN (hypertension) Current Visit: Yes Status: Chronic Qualifiers: Hypertension type: primary hypertension Qualified Code(s): I10 - Essential (primary) hypertension (7) HLD (hyperlipidemia) Current Visit: Yes Status: Chronic Qualifiers: Hyperlipidemia type: unspecified Qualified Code(s): E78.5 - Hyperlipidemia, unspecified (8) Hypothyroid Current Visit: Yes Status: Chronic Qualifiers: Hypothyroidism type: unspecified Qualified Code(s): E03.9 - Hypothyroidism, unspecified (9) Dementia Current Visit: Yes Status: Chronic Qualifiers: Dementia type: Alzheimer's Alzheimer's disease onset: unspecified onset Dementia behavioral disturbance: with behavioral disturbance Qualified Code(s): G30.9 - Alzheimer's disease, unspecified; F02.81 - Dementia in other diseases classified elsewhere with behavioral disturbance - Plan admitted to ICU pulm consulted O2 as needed monitor for signs of bleeding hold eliquis, will consider initiating tomorrow trend troponin ECHO on Wednesday potassium replacement protocol ativan PRN for agitation Discharge Plan: Home Plan to discharge in: 48 Hours - Advance Directives Does patient have a Living Will: No Does patient have a Durable POA for Healthcare: No - Code Status/Comfort Care Code Status Assessed: Yes (full code ) Critical Care: Yes Time Spent Managing Pts Care (In Minutes): 70
[2021-04-24] MEDS ORDERED: HALOPERIDOL LACT 5 MG/ML INJ IV PRN (02:04)
[2021-04-24] MEDS ORDERED: IPRATROPIUM BROM 0.5MG/2.5ML NEB PRN (02:04)
[2021-04-24] MEDS ORDERED: ACETAMINOPHEN 500 MG TAB PO PRN (02:04)
[2021-04-24] MEDS ORDERED: LORazepam 2 MG/ML VIAL IV PRN (02:04)
[2021-04-24] MEDS ORDERED: NA CHLORIDE 0.9% 250 ML IV PRN (02:04)
[2021-04-24] MEDS ORDERED: ALBUTEROL 2.5 MG/3 ML NEB SOL NEB PRN (02:04)
[2021-04-24] MEDS ORDERED: ONDANSETRON 4 MG/2 ML VIAL IV PRN (02:04)
[2021-04-24 03:09] LABS: Absolute Lymphocytes (CBC) 1.6 K/uL (0.7-4.9); Basophils % 0.5 % (0-1.3); Hematocrit 29.5 % (36.0-45.0); Lymphocytes % 29.5 % (15.3-44.8); MPV 8.2 fL (7.6-11.3); RBC Red Blood Cell Count 3.43 M/uL (3.86-4.86)
[2021-04-24 04:13] LABS: Albumin 2.9 g/dL (3.4-5.0); Bilirubin Total 1.6 mg/dL (0.2-1.0); Magnesium 1.9 mg/dL (1.8-2.4); Phosphorus 3.8 mg/dL (2.5-4.9); Potassium 3.1 mmol/L (3.5-5.1); Protein, Total 6.4 g/dL (6.4-8.2); T4,Total 9.8 ug/dL (4.8-13.9)
[2021-04-24 04:15] LABS: Thyroid Stimulating Hormone 4.71 uIU/mL (0.360-3.740)
[2021-04-24 04:16] VITALS: TEMP 98.3
[2021-04-24 04:31] VITALS: BMI 45.1
[2021-04-24] MEDS: INSULIN -REGULAR HUMAN 50 UNIT/0.5 ML ML SQ SCH ×3 (07:30→16:23)
--- NOTE | 2021-04-24 08:43 | RAD REPORT ---
EXAM DESCRIPTION: Jazmin Single View04/24/2021 8:20 am CLINICAL HISTORY: Hypoxia COMPARISON: April 23, 2021 FINDINGS: Calcified granuloma right lung base. The lungs appear clear of acute infiltrate. The heart is borderline enlarged IMPRESSION: No acute abnormalities displayed
[2021-04-24] MEDS ORDERED: POTASSIUM CL SA 10 MEQ TAB PO ONE (09:00)
[2021-04-24] MEDS ORDERED: DONEPEZIL HCL 5 MG TAB PO SCH (09:00)
[2021-04-24 09:11] VITALS: O2SAT 100
[2021-04-24] MEDS ORDERED: CEFTRIAXONE 1,000 MG in NA CHLORIDE 0.9% 50 ML IVPB SCH (12:00)
[2021-04-24] MEDS ORDERED: VANCOMYCIN 2 GM in NA CHLORIDE 0.9% 500 ML IVPB SCH (13:00)
[2021-04-24] MEDS ORDERED: HALOPERIDOL LACT 5 MG/ML INJ ONE (14:07)
--- NOTE | 2021-04-24 14:38 | P.PN ---
Date of Service: 04/24/21 Subjective: Patient with agitation/combativeness overnight, yelling profanities and trying to hit staff Per nursing, Ativan seemed to make things worse, Haldol seemed to help Patient resting comfortably this morning ROS: Unable to accurately be obtained, patient slightly difficult to arouse, confused Physical exam GEN: NAD, resting comfortably HEENT: Normal conjunctiva, sclera anicteric CV: Regular rate and rhythm, no edema Pulm: Nonlabored respirations on 2L NC ABD: Soft, nontender, nondistended MSK: No joint tenderness Integumentary: No rashes Problem List Acute hypoxemic respiratory failure secondary to bilateral pulmonary emboli with suspected right heart strain NSTEMI, likely demand ischemia in setting of bilateral PE Hypertension Presyncope Acute metabolic encephalopathy likely secondary to hypoxia Hypertension Hyperlipidemia Hypothyroidism Severe dementia Admitted to ICU, continue closely monitor Status post TPA in the ED on 04/23 evening Pulmonology consulted in the ED Improving from a respiratory standpoint, pulmonology recommends restarting Eliquis today Troponin improving, likely demand ischemia. Cardiology was consulted Unable to obtain an echocardiogram until Wednesday Patient with severe dementia, and combative at times continue Haldol as needed Confirm home medications and restart as appropriate leg, especially dementia medications Dispo: Anticipate DC back to assisted living in 24 to 48 hours Time Spent Managing Pts Care (In Minutes): 35
--- NOTE | 2021-04-24 15:26 | CON ---
Date of Consultation: 04/24/2021 Reason For Consultation: PE. History Of Present Illness: A 76-year-old female, history of dementia, hypertension, hypothyroidism, dyslipidemia, recently diagnosed with PE, discharged home on Eliquis the day prior to this presentat ion and was brought in from assisted living to us due to change in mental status, hypotension, and hy poxia. She had new syncopal episode in the emergency room. It was felt that the patient was hemodyn amically unstable and was given a tPA in the emergency room and admitted to ICU. The patient is comb ative and unable to get history from her. Most part of this history is from the records. Past Medical History: As outlined above. Medications: Refer reconciliation sheet for detailed list. Allergies: ASPARTAME. Social History: Does not smoke or drink. Does not use any drugs. Family History: No premature coronary artery disease or cancer. Review of Systems: All systems reviewed were negative except for mentioned in the HPI. Physical Examination: Vital Signs: Temperature is 98.3, pulse 52, breathing at 18, blood pressure 123/91, and saturating 1 00%. General: This is an elderly female, no apparent distress at the present time. Head and Neck: Pupils are equal and reactive to light. No JVD. No cervical lymphadenopathy. Neck: Supple. Thyroid is not enlarged. Lungs: Clear to auscultation bilaterally. No rhonchi, rales, or crackles. Heart: Regular rate and rhythm. No extra sounds. Abdomen: Soft, nontender. Bowel sounds positive. No organomegaly. No masses or hernia. No rigidi ty or rebound. Extremities: No clubbing, cyanosis. Intact pulses. Skin: No rashes. Neurologic: Lethargic. Moving all extremities. Lymph Nodes: No cervical or axillary lymphadenopathy. Investigations: Recent CTA of the chest showed bilateral pulmonary emboli. There was a thrombus pre sent within the distal left main extending into the left upper lobe and also within the right upper l obe and middle lobe as well and lower lobes of pulmonary arteries, extensive. Assessment And Recommendations: 1.Pulmonary embolism. She was treated with thrombolytics. Because the patient was unstable at this point, recommend initiation of anticoagulation with Lovenox 1 mg/kg subcu q.12 hours and if there wa s concern about this mental status change after the thrombolytics, I would recommend repeating CT sca n before further management. Probably, the patient did not take her medications post discharge the f irst time. 2.Elevated troponin, this is likely due to the pulmonary embolus. Obtain echocardiogram to further evaluate for any more motion abnormality. Thank you for the consult. /BELLA Voice ID: [id number] Report ID: [id number]
--- NOTE | 2021-04-24 18:53 | RAD REPORT ---
EXAM DESCRIPTION: CT - Head Brain Wo Cont - 04/24/2021 6:38 pm CLINICAL HISTORY: Syncope COMPARISON: April 23 TECHNIQUE: Computed axial tomography of the head was obtained. IV contrast was not requested. All CT scans are performed using dose optimization technique as appropriate and may include automated exposure control or mA/KV adjustment according to patient size. FINDINGS: 11 millimeter bleed has developed within the superior left temporal lobe since the prior e xam. No other significant change. IMPRESSION: 11 millimeter bleed within the left cerebrum. Charge nurse Roselyn notified approximately 6:39 p.m. April 24, 2021
--- NOTE | 2021-04-24 20:42 | P.DS ---
Admission Date: 04/23/21 Discharge Date: 04/24/21 Disposition: TRANSFER TO [facility] Discharge Condition: FAIR Reason for Admission: PE Consultations: Cardiology - Dr. Rene Pulmonology - Dr. Doshi Neurology - Dr. Caraballo Procedures: received tPA in the ED - Problems (1) Hypoxia Current Visit: Yes Status: Resolved (2) Elevated troponin Current Visit: Yes Status: Acute (3) Hypotension Current Visit: No Status: Resolved Qualifiers: Hypotension type: unspecified hypotension type Qualified Code(s): I95.9 - Hypotension, unspecified (4) Pre-syncope Current Visit: No Status: Resolved (5) Pulmonary embolism Current Visit: No Status: Acute Qualifiers: Pulmonary embolism type: unspecified Chronicity: acute Acute cor pulmonale presence: unspecified Qualified Code(s): I26.99 - Other pulmonary embolism without acute cor pulmonale (6) HTN (hypertension) Current Visit: Yes Status: Chronic Qualifiers: Hypertension type: primary hypertension Qualified Code(s): I10 - Essential (primary) hypertension (7) HLD (hyperlipidemia) Current Visit: Yes Status: Chronic Qualifiers: Hyperlipidemia type: unspecified Qualified Code(s): E78.5 - Hyperlipidemia, unspecified (8) Hypothyroid Current Visit: Yes Status: Chronic Qualifiers: Hypothyroidism type: unspecified Qualified Code(s): E03.9 - Hypothyroidism, unspecified (9) Dementia Current Visit: Yes Status: Chronic Qualifiers: Dementia type: Alzheimer's Alzheimer's disease onset: unspecified onset Dementia behavioral disturbance: with behavioral disturbance Qualified Code(s): G30.9 - Alzheimer's disease, unspecified; F02.81 - Dementia in other diseases classified elsewhere with behavioral disturbance Brief History of Present Illness: Ms. Bertrand is a 76 yo F with dementia, HTN, hypothyroidism, HLD, and recent diagnosis of PE on eliquis discharged from hospital yesterday who was brought in from assisted living home for AMS, hypotension and hypoxia. Also has had general weakness and a near syncopal event at [facility]. She is more confused than usual. Unknown if patient received first dose of eliquis last night or this morning. K 3.2 BUN 24 GFR 45 trop 0.29 BNP 3035. Given newly elevated troponin, elevated BNP, and right heart strain on EKG, concern that PE is causing today's symptoms. After discussion with pulmonology, ED administered tPA. Patient admitted to ICU for further monitoring. CXR IMPRESSION: No acute intrathoracic process suspected. CT HEAD IMPRESSION: No acute intracranial abnormality. VENOUS US IMPRESSION: No sonographic evidence of left or right lower extremity deep venous thrombosis. Hospital Course: Repeat CT head done 24 hours after initiation of tPA. CT Head revealed 11mm bleed within the left cerebrum. Held eliquis. Spoke to neurology, and decision was made to escalate care to [facility] for neurosurgery and neuro ICU bed due to concern for bleeding into brainstem, herniation, and increased intracranial pressure. Patient was accepted to [facility] and transfer by ambulance is being arranged. At bedside, patient is sitting in bed eating green beans and turkey. Not requiring any supplemental O2. Vitals are stable. Family updated at bedside on plan of care. Vital Signs/Physical Exam: Temp Pulse Resp BP Pulse Ox 98.3 F 66 14 125/54 L 100 04/24/21 14:00 04/24/21 19:00 04/24/21 18:00 04/24/21 19:00 04/24/21 19:00 Laboratory Data at Discharge: WBC 5.40 K/uL (4.3-10.9) 04/24/21 02:42 Hgb 9.9 g/dL (12.0-15.0) L 04/24/21 02:42 Hct 29.5 % (36.0-45.0) L 04/24/21 02:42 Plt Count 198 K/uL (152-406) 04/24/21 02:42 PT 18.1 SECONDS (9.5-12.5) H 04/23/21 16:49 INR 1.57 04/23/21 16:49 Sodium 145 mmol/L (136-145) 04/24/21 02:42 Potassium 3.1 mmol/L (3.5-5.1) L 04/24/21 02:42 BUN 20 mg/dL (7-18) H 04/24/21 02:42 Creatinine 0.87 mg/dL (0.55-1.3) 04/24/21 02:42 Glucose 95 mg/dL (74-106) 04/24/21 02:42 Phosphorus 3.8 mg/dL (2.5-4.9) 04/24/21 02:42 Magnesium 1.9 mg/dL (1.8-2.4) 04/24/21 02:42 Total Bilirubin 1.6 mg/dL (0.2-1.0) H 04/24/21 02:42 AST 20 U/L (15-37) 04/24/21 02:42 ALT 15 U/L (12-78) 04/24/21 02:42 Alkaline Phosphatase 44 U/L (45-117) L 04/24/21 02:42 Troponin I 0.14 ng/mL (0.0-0.045) H 04/24/21 12:44 Triglycerides 104 mg/dL (<150) 04/24/21 02:42 Cholesterol 118 mg/dL (<200) 04/24/21 02:42 HDL Cholesterol 43 mg/dL (40-60) 04/24/21 02:42 Cholesterol/HDL Ratio 2.74 04/24/21 02:42 Home Medications: Verapamil HCl [Verapamil ER] 240 mg PO BID 03/27/15 Atorvastatin Calcium 40 mg PO BEDTIME 03/28/17 Levothyroxine Sodium 125 mcg PO DAILY 03/28/17 Valsartan 40 mg PO DAILY 03/28/17 Apixaban [Eliquis] 10 mg PO BID 04/24/21 Aripiprazole [Abilify] 2 mg PO BEDTIME 04/24/21 Diclofenac Sodium 50 mg PO DAILY 04/24/21 Escitalopram Oxalate [Lexapro] 10 mg PO DAILY 04/24/21 Galantamine HBr [Galantamine ER] 8 mg PO BID 04/24/21 Memantine HCl [Namenda] 10 mg PO BID 04/24/21 Nitrofurantoin Monohyd/M-Cryst [Nitrofurantoin Campbell-Mcr 100 mg] 100 mg PO BID 04/24/21 clonazePAM [Clonazepam] 1 mg PO BID 04/24/21 Followup: TARUN FRAGOSO JR [Primary Care Provider] -
[2021-04-24] MEDS ORDERED: APIXABAN 5 MG TABLET PO SCH (21:00)
[2021-04-24] MEDS ORDERED: HOME MED 1 EA UNK (Aripiprazole [Abilify] 2 MG Tablet) PO SCH (21:00)
[2021-04-24] MEDS ORDERED: MEMANTINE HCL 10 MG TABLET PO SCH (21:00)
[2021-04-24 21:28] VITALS: BP 112/70
[2021-04-25] MEDS ORDERED: LEVOTHYROXINE SOD 0.125 MG TAB PO SCH (06:30)
[2021-04-25] MEDS ORDERED: ESCITALOPRAM 20 MG TAB PO SCH (09:00)
[2021-04-25] MEDS ORDERED: HOME MED 1 EA UNK (Levothyroxine Sodium [Levothyroxine Sodium] 137 MCG Tablet) PO SCH (09:00)
[2021-04-25] MEDS ORDERED: HOME MED 1 EA UNK (Escitalopram Oxalate [Lexapro] 10 MG Tablet) PO SCH (09:00)
== END 2021-04-24 21:06 | disposition short-term general hospital (02) | DRG 64 ==
LOC: ER 14:20 → ERHOLD 21:10
PROVIDERS: ADMIT Hospitalist; ATTEND Hospitalist
DX: I61.9 Nontraumatic intracerebral hemorrhage, unspecified (principal); I26.99 Other pulmonary embolism without acute cor pulmonale; J96.01 Acute respiratory failure with hypoxia; I21.A1 Myocardial infarction type 2; G93.41 Metabolic encephalopathy; F02.81 Dementia in other diseases classified elsewhere, unspecified severity, with behavioral disturbance; N39.0 Urinary tract infection, site not specified; R53.1 Weakness; G30.9 Alzheimer's disease, unspecified; E03.9 Hypothyroidism, unspecified; I10 Essential (primary) hypertension; E78.5 Hyperlipidemia, unspecified; I95.9 Hypotension, unspecified; R77.8 Other specified abnormalities of plasma proteins; Z20.822 Contact with and (suspected) exposure to COVID-19
CPT/HCPCS: 36415; 70450; 71045; 80048; 80053; 80061; 80076; 82272; 82947; 83605; 83735; 83880; 84100; 84145; 84436; 84439; 84443; 84484; 85025; 85610; 87040; 87205; 93005; 93970; 94660; 96372; 99285; J1630; J2997; J3370; J7030; J7040; U0003